=== PATIENT | male | born 1955 | race Caucasian/White ===

== ENCOUNTER 2023-04-15 07:35 | Outpatient (REF) | payer MEDICARE, OTHER, SELFPAY ==
--- NOTE | ~2023-04-15 | US_ITS ---
EXAMINATION: US VENOUS REFLUX/INSUF FICIENCY CLINICAL INFORMATION: Varicose veins, pain COMPARISON: None. TECHNIQUE: Bilateral lower extremity venous insufficiency ultrasound was performed with velocity measurements. Color flow Doppler imaging was performed. FINDINGS: RIGHT SIDE: No evidence of DVT within the common femoral, mid femoral, or popliteal vein. There is evidence of venous reflux within the mid segment of the femoral vein with reflux time 2576 ms GREATER SAPHENOUS VEIN: The right saphenofemoral junction measures 0.9cm. The reflux time is 752 ms. Proximal thigh measures 1cm. Reflux time is 2472 ms. Mid thigh measures 1.1cm. Reflux time is 2056 ms. Above-knee measures 0.6cm. Reflux time is 2476 ms. At the knee measures 0.5cm. Reflux time is 2564 ms. Below the knee measures 0.3cm. Reflux time is 0 ms. Mid calf measures 0.3cm. Reflux time is 0 ms. At the level of the ankle it measures 0.3cm. Reflux time is 0 ms. SMALL SAPHENOUS VEIN: The saphenopopliteal junction measures 0.3 cm. Reflux time is 0 ms. The midcalf small saphenous vein measures 0.3 cm. Reflux time is 548 ms.. The distal small saphenous vein measures 0.4cm. Reflux time is 1012 ms. There are several special event assistant veins identified. This includes: 51 cm from the calcaneus at the mid thigh there is a 0.4 cm special event assistant with reflux time 2700 ms. At the proximal calf there is a 0.3 cm special event assistant which does not demonstrate reflux. At the mid calf there are 2 additional special event assistant veins which measure 0.3 cm and do not demonstrate reflux. There is a 0.8 cm varicosity at the level of the knee with reflux time 2412 ms. LEFT SIDE: No evidence of DVT within the common femoral, mid femoral, or popliteal vein. There is evidence of venous reflux within the common femoral vein with reflux time 792 ms. There is also venous reflux within the mid femoral vein with reflux time 2424 ms GREATER SAPHENOUS VEIN: The left saphenofemoral junction measures 0.9cm. The reflux time is 0 ms. Proximal thigh measures 0.8cm. Reflux time is 0 ms. Mid thigh measures 0.6cm. Reflux time is 2664 ms. Above-knee measures 0.5cm. Reflux time is 2640 ms. At the knee measures 0.5cm. Reflux time is 2720 ms. Below the knee measures 0.5cm. Reflux time is 0 ms. Mid calf measures 0.3cm. Reflux time is 0 ms. At the level of the ankle it measures0.3cm. Reflux time is 0 ms. There is a medial duplicated saphenous vein which measures 0.3 cm at the saphenofemoral junction and does not demonstrate reflux. At the mid thigh measures 0.3 cm and does not demonstrate reflux. SMALL SAPHENOUS VEIN: The saphenopopliteal junction measures 0.4 cm. Reflux time is 0 ms. The upper left small saphenous vein measures 0.2 cm. Reflux time is 0 ms. The lower small saphenous vein measures 0.2cm. Reflux time is 0 ms. Several special event assistant veins are visualized. These include: At the distal calf is 0.2 cm special event assistant, no reflux At the mid calf there is a 0.3 cm special event assistant, no reflux At the distal calf there is a 0.2 cm special event assistant, no reflux There are several left lower extremity varicose vein seen. At the proximal thigh there is a 0.3 cm varicosity with reflux time 2152 ms At the knee there is a 0.6 cm varicosity with reflux time 1376 ms At the mid calf there is a 0.2 cm varicosity with reflux time 1736 ms US/US venous duplex LE BI IMPRESSION: On the right there is evidence of deep venous reflux within the midportion of the femoral vein. There is venous reflux within the great saphenous vein extending from the level of the saphenofemoral junction to the below the knee segment. There is also reflux within the small saphenous vein within the mid calf the distal calf portions. There is also a mid thigh special event assistant, 51 cm from the calcaneus, which demonstrate reflux. There is a 0.8 cm varicosity at the knee which demonstrate reflux as well. On the left there is evidence of deep venous reflux within the common femoral vein at the midportion of the femoral vein. There is venous reflux within the great saphenous vein from the mid thigh to the knee. There are 3 varicosities, as described which demonstrate venous reflux.
== END 2023-04-15 07:36 | disposition home or self-care (01) ==
LOC: HO.US 07:35
PROVIDERS: PCP Family Medicine; Visit Provider Family Medicine
DX: I83.813 Varicose veins of bilateral lower extremities with pain (principal)
CPT/HCPCS: 93970

== ENCOUNTER 2023-04-18 08:35 | Outpatient (REF) | payer MEDICARE, OTHER, SELFPAY | END 2023-04-18 08:36 | disposition home or self-care (01) | LOC: HO.HHCL 08:35 | PROVIDERS: Visit Provider Family Medicine | DX: I10 Essential (primary) hypertension (principal) | CPT/HCPCS: 36415; 80048 ==

== ENCOUNTER 2023-05-27 09:34 | Outpatient (AMB) | payer MEDICARE, OTHER, SELFPAY ==
--- NOTE | 2023-05-27 09:49 | A.OFFVIS_ITS ---
Intake Vital Signs 05/27/23 09:51 Height 5 ft 5 in Weight 200 lb BMI 33.3 Intake Visit Reasons: new pt VV Intake Note: PT here today for a referral for VV He states that he is doing ok he id have a episode where his VV did get swollen and he had gone to the ER but he said ever since hes been using the compression stockings and has seen improvement Parking Assistant Required: Yes Parking Assistant Name: alley pinedo Information Interpreted: clinical only Allergies No Known Allergies Allergy (Verified 05/27/23 09:51) HPI new pt VV HPI Details Very pleasant 67-year-old gentleman patient presents for painful varicose veins. Complaints include pain over varicosities, swelling of lower extremities, cramping, fatigue, and heaviness of the lower extremities. Had an episode of right ankle phlebitis. It has been affecting there daily activities including walking. It is noted more so in right leg. Patient denies any previous venous surgery or injections. Patient denies any history of DVT/ PE. Patient denies any history of phlebitis. Trial of compression includes - [id number] They now present for vascular evaluation regarding their varicose veins. Review of Systems Const Reports as per HPI ENT Reports no additional complaints Card Denies chest pain, Denies chest pain at rest and Denies chest pain with activity Resp Denies chest congestion and Denies cough GI Reports no additional complaints Musc Details: pain over varicosities, aching of lower extremities, swelling, cramping, heaviness and tiredness, itching Denies abnormal gait Skin/Breast Reports pruritus and Denies wounds Neuro Reports no additional complaints and Denies abnormal gait Psych Denies no additional complaints Physical Exam Vital Signs: BMI result Body Mass Index 33.3 Const General: cooperative, healthy appearing and comfortable Orientation/consciousness: oriented to person, oriented to place and oriented to time Neck Carotids: no bruits Chest Chest palpation & inspection: normal inspection of the chest and normal palpation of entire chest wall Resp Effort & Inspection: normal respiratory effort and able to speak in complete se ntences Cardio Rate: regular rate Heart sounds: S1 normal heart sound present and S2 normal heart sound present Peripheral pulses: Peripheral pulses 2+ throughout GI Inspection: Yes normal to inspection Skin Other: +2 edema, large rope-like varicosities greater than 4 mm right ankle and calf CEAP Classification C4 - skin color changes Ep - Etiology Primary As - superficial veins P - reflux General skin exam: dry skin Neuro General: oriented to person, oriented to place and oriented to time Extrem Right lower extremity: full ROM, normal capillary refill and edema Left lower extremity: full ROM, normal capillary refill and edema Psych Mental Status: mental status grossly normal Assessment & Plan Assessment & Plan (1) Varicose veins of right lower extremity with inflammation: Code(s): I83.11 - Varicose veins of right lower extremity with inflammation Plan: In short, the patient has evidence of venous insufficiency. I have discussed the pathophysiology with the patient. In addition I have provided informational material regarding venous disease to the patient. We have discussed conservative measures including compression, elevation, and exercise. I have also provided a handout regarding appropriate use of compression stockings and where to purchase good compression stockings as well. I have taken the liberty of ordering venous insufficiency testing with the patient. They will follow up with me after testing. The patient had an opportunity to ask questions regarding the treatment plan. All questions were answered. Imaging studies, laboratory studies and physical exam results were discussed and reviewed in detail. No major barriers to understanding were identified. The patient expressed understanding and agreement with the above treatment plan. The patient is aware they should contact our office by phone for worsening of the current condition or the appearance of new symptoms. Thank you for allowing me to participate in the vascular care of this patient. If you have any questions or concerns regarding the treatment for the above condition please do not hesitate to contact me. The office telephone contact is [phone]. This note is constructed using voice recognition software. While every effort has been made to ensure accuracy, oracle data warehouse developer errors may have been included. Thank you for allowing me to participate in the care of your patient. Yours sincerely, Mohinder Sepulveda MD, FACS, R.P.V.I. Orders: Orders US venous duplex LE BI 1 Week I83.11 - Varicose veins of right lower extremity with inflammation Coding Level of Care Code New Pt Level 4 (55505) Diagnoses Varicose veins of right lower extremity with inflammation I83.11
[2023-05-27 09:51] VITALS: BMI 33.3
== END 2023-05-27 10:43 | disposition home or self-care (01) ==
PROVIDERS: PCP Family Medicine; Visit Provider Surgery Vascular Surgery
DX: I83.11 Varicose veins of right lower extremity with inflammation (principal)
CPT/HCPCS: 99204

== ENCOUNTER → 2023-05-27 09:34 | Outpatient (BNVA) | payer MEDICARE, OTHER, SELFPAY | PROVIDERS: PCP Family Medicine; Visit Provider Surgery Vascular Surgery | DX: I83.11 Varicose veins of right lower extremity with inflammation (principal) | CPT/HCPCS: 99202 ==

== ENCOUNTER 2023-06-10 07:58 | Outpatient (REF) | payer MEDICARE, OTHER, SELFPAY | END 2023-06-10 07:59 | disposition home or self-care (01) | LOC: HO.US 07:58 | PROVIDERS: PCP Family Medicine; Visit Provider Surgery Vascular Surgery | DX: Z13.89 Encounter for screening for other disorder (principal) ==

== ENCOUNTER 2023-07-04 13:20 | Outpatient (AMB) | payer MEDICARE, MEDICAID, SELFPAY ==
--- NOTE | 2023-07-04 13:32 | A.OFFVIS_ITS ---
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 Pt states that he gets swelling in his right leg where the VV are located but it has not happened in a few weeks and he does not feel any pain or discomfort. He states that his left leg is perfectly fine Graphite Disk Assembler Required: Yes Graphite Disk Assembler Name: Barrera Burch Information Interpreted: non-clinical & clinical Allergies No Known Allergies Allergy (Verified 07/04/23 13:35) HPI CONTENT MANAGEMENT CONSULTANT VV HPI Details 68-year-old gentleman patient presents for painful varicose veins. Complaints include pain over varicosities, swelling of lower extremities, cramping, fatigue, and heaviness of the lower extremities. 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 It is noted more so in right leg. Biggest concern is that he has a large right calf varicosities Patient denies any previous venous surgery or injections. Patient denies any history of DVT/ PE. Patient denies any history of phlebitis. Trial of compression includes - [id number] They now present for vascular evaluation regarding their varicose veins. Review of Systems Const Reports as per HPI ENT Reports no additional complaints Card Denies chest pain, Denies chest pain at rest and Denies chest pain with activity Resp Denies chest congestion and Denies cough GI Reports no additional complaints Musc Details: pain over varicosities, aching of lower extremities, swelling, cramping, heaviness and tiredness, itching Denies abnormal gait Skin/Breast Reports pruritus and Denies wounds Neuro Reports no additional complaints and Denies abnormal gait Psych Denies no additional complaints Physical Exam Vital Signs: BMI result Body Mass Index 33.9 Const General: cooperative, healthy appearing and comfortable Orientation/consciousness: oriented to person, oriented to place and oriented to time Neck Carotids: no bruits Chest Chest palpation & inspection: normal inspection of the chest and normal palpation of entire chest wall Resp Effort & Inspection: normal respiratory effort and able to speak in complete sentences Cardio Rate: regular rate Heart sounds: S1 normal heart sound present and S2 normal heart sound present Peripheral pulses: Peripheral pulses 2+ throughout GI Inspection: Yes normal to inspection Skin Other: +2 edema, large rope-like varicosities greater than 4 mm CEAP Classification C4 - skin color changes Ep - Etiology Primary As - superficial veins P - reflux General skin exam: dry skin Neuro General: oriented to person, oriented to place and oriented to time Extrem Right lower extremity: full ROM, normal capillary refill and edema Left lower extremity: full ROM, normal capillary refill and edema Psych Mental Status: mental status grossly normal Assessment & Plan Assessment & Plan (1) Varicose veins of right lower extremity with inflammation: Code(s): I83.11 - Varicose veins of right lower extremity with inflammation Plan: In short, the patient has evidence of venous insufficiency. I have discussed the pathophysiology with the patient. In addition I have provided informational material regarding venous disease to the patient. We have discussed conservative measures including compression, elevation, and exercise. I have also provided a handout regarding appropriate use of compression stockings and where to purchase good compression stockings as well. I have taken the liberty of ordering venous insufficiency testing with the patient. They will follow up with me after testing. The patient had an opportunity to ask questions regarding the treatment plan. All questions were answered. Imaging studies, laboratory studies and physical exam results were discussed and reviewed in detail. No major barriers to understanding were identified. The patient expressed understanding and agreement with the above treatment plan. The patient is aware they should contact our office by phone for worsening of the current condition or the appearance of new symptoms. Thank you for allowing me to participate in the vascular care of this patient. If you have any questions or concerns regarding the treatment for the above condition please do not hesitate to contact me. The office telephone contact is [phone]. This note is constructed using voice recognition software. While every effort has been made to ensure accuracy, restaurant managing partner errors may have been included. Thank you for allowing me to participate in the care of your patient. Yours sincerely, Mohinder Sepulveda MD, FACS, R.P.V.I. Orders: Orders US venous duplex LE BI 1 Week I83.11 - Varicose veins of right lower extremity with inflammation Coding Level of Care Code New Pt Level 4 (72305) Diagnoses Varicose veins of right lower extremity with inflammation I83.11
[2023-07-04 13:34] VITALS: BMI 33.9
== END 2023-07-04 13:59 | disposition home or self-care (01) ==
PROVIDERS: PCP Emergency Medicine; Visit Provider Surgery Vascular Surgery
DX: I83.11 Varicose veins of right lower extremity with inflammation (principal)
CPT/HCPCS: 99203; 99213

== ENCOUNTER → 2023-07-04 13:20 | Outpatient (BNVA) | payer MEDICARE, MEDICAID, SELFPAY | PROVIDERS: PCP Emergency Medicine; Visit Provider Surgery Vascular Surgery | DX: I83.11 Varicose veins of right lower extremity with inflammation (principal) | CPT/HCPCS: 99202 ==

== ENCOUNTER 2023-08-06 10:42 | Outpatient (AMB) | payer MEDICARE, MEDICAID, SELFPAY ==
--- NOTE | 2023-08-06 10:43 | A.OFFVIS_ITS ---
Intake Vital Signs 08/06/23 10:44 Height 5 ft 5 in Weight 204 lb BMI 33.9 Intake Visit Reasons: Follow up [facility] 04/2023 Intake Note: follow up [facility] 04/15/2023, Pt states only the right LE is bothersome, he has a large venous cluster Allergies No Known Allergies Allergy (Verified 08/06/23 10:48) HPI Follow up [facility] 04/2023 HPI Details Very pleasant 68-year-old gentleman presents for follow-up regarding venous insufficiency. He actually had testing done back in April of 2023. Since that time he has been managing it conservatively. He does note a fair amount of swelling and pain right more so than left. Large right calf varicosities which have been a source of pain for him as well. Now presents for follow-up with venous insufficiency testing. [facility] Surgical History (Updated 08/06/23 @ 10:51 by LOUISA Juna) H/O shoulder surgery Previous back surgery Social History (Updated 08/06/23 @ 10:50 by LOUISA Juan) Patient Tobacco Use Status: Never used Tobacco Review of Systems Const Reports as per HPI ENT Reports no additional complaints Card Denies chest pain, Denies chest pain at rest and Denies chest pain with activity Resp Denies chest congestion and Denies cough GI Reports no additional complaints Musc Details: pain over varicosities, aching of lower extremities, swelling, cramping, heaviness and tiredness, itching Denies abnormal gait Skin/Breast Reports pruritus and Denies wounds Neuro Reports no additional complaints and Denies abnormal gait Psych Denies no additional complaints Physical Exam Vital Signs: BMI result Body Mass Index 33.9 Const General: cooperative, healthy appearing and comfortable Orientation/consciousness: oriented to person, oriented to place and oriented to time Neck Carotids: no bruits Chest Chest palpation & inspection: normal inspection of the chest and normal palpation of entire chest wall Resp Effort & Inspection: normal respiratory effort and able to speak in complete sentences Cardio Rate: regular rate Heart sounds: S1 normal heart sound present and S2 normal heart sound present Peripheral pulses: Peripheral pulses 2+ throughout GI Inspection: Yes normal to inspection Skin Other: +2 edema, large rope-like varicosities greater than 4 mm right calf CEAP Classification C4 - skin color changes Ep - Etiology Primary As - superficial veins P - reflux General skin exam: dry skin Neuro General: oriented to person, oriented to place and oriented to time Extrem Right lower extremity: full ROM, normal capillary refill and edema Left lower extremity: full ROM, normal capillary refill and edema Psych Mental Status: mental status grossly normal Results Reviewed Results Reviewed: Brief summary of venous insufficiency testing is as follows: right great saphenous vein: Positive right small saphenous vein: Positive right accessory vein: none present left great saphenous vein: Positive left small saphenous vein: negative left accessory vein: none present Please note there is no evidence of any venous aneurysms or significant tortuosity Assessment & Plan Assessment & Plan (1) Varicose veins of right lower extremity with inflammation: Code(s): I83.11 - Varicose veins of right lower extremity with inflammation Plan: This patient has varicose veins with inflammation. They continue to be a source of discomfort for the patient. The patient has tried conservative treatment with compression, leg elevation and exercise program for over 3 months time. They have been compliant with all treatment. This has provided minimal relief for the patient. I do not anticipate this course of treatment will alter the underlying etiology. The patient has been scheduled for lower extremity venous treatment inclusive of --- right great saphenous vein radiofrequency ablation. Risks, benefits, and complications of this procedure has been discussed in detail with the patient including but not limited to bleeding, infection, and the development of a DVT. The patient has demonstrated a clear understanding and has consented. We will schedule the patient as soon as possible. Thank you for allowing us to participate in this patient's care. If there are any questions or concerns please do not hesitate to contact us. Coding Level of Care Code Est Pt Level 4 (77769) Diagnoses Varicose veins of right lower extremity with inflammation I83.11
[2023-08-06 10:44] VITALS: BMI 33.9
== END 2023-08-06 11:14 | disposition home or self-care (01) ==
PROVIDERS: PCP Family Medicine; Visit Provider Surgery Vascular Surgery
DX: I83.11 Varicose veins of right lower extremity with inflammation (principal)
CPT/HCPCS: 99214

== ENCOUNTER → 2023-08-06 10:42 | Outpatient (BNVA) | payer MEDICARE, OTHER, SELFPAY | PROVIDERS: PCP Family Medicine; Visit Provider Surgery Vascular Surgery | DX: I83.11 Varicose veins of right lower extremity with inflammation (principal) | CPT/HCPCS: 99212 ==

== ENCOUNTER 2024-02-12 10:42 | Outpatient (REF) | payer MEDICARE, MEDICAID, SELFPAY ==
--- NOTE | ~2024-02-12 | XR_ITS ---
EXAMINATION: XR FOOT, LEFT CLINICAL INFORMATION: Pain after trauma COMPARISON: None available. TECHNIQUE: AP, lateral, and oblique views of the left foot. FINDINGS: Oblique nondisplaced fracture through the proximal phalanx of the fourth toe. No other fractures are seen. Vascular calcifications are present. Postsurgical changes are seen in the distal tibia. XR/XR foot LT min 3V IMPRESSION: Fracture proximal phalanx fourth toe.
== END 2024-02-12 10:43 | disposition home or self-care (01) ==
LOC: HO.HHCX 10:42
PROVIDERS: Visit Provider Emergency Medicine
DX: S99.922A Unspecified injury of left foot, initial encounter (principal); M79.672 Pain in left foot
CPT/HCPCS: 73630

== ENCOUNTER 2024-02-21 10:08 | Outpatient (AMB) | payer MEDICARE, MEDICAID, SELFPAY ==
--- NOTE | 2024-02-21 10:15 | MHC.OFFVIS ---
Vital Signs 02/21/24 10:24 Height 5 ft 5 in Weight 204 lb BMI 33.9 Intake Visit Reasons: FC- Left 4th toe fracture Intake Note: David a 68 year old male who presents today with his son for a new patient evaluation of left 4th toe fracture. Patient reports that he hit his toe on a couch about 4 weeks ago while in [place]. He was seen by walk in at his PCP office, xrays were taken and referred to orthopedics. His pain has improved however he has discomfort with wearing shoes. He continues to have swelling in his toe. Quality Control Tech Services: Quality Control Tech Offered & Declined Allergies No Known Allergies Allergy (Verified 02/21/24 10:19) Medication List - Last Reconciled 02/21/24 by Yang Fregoso PA-C hydrocortisone 2.5% appl topical losartan 12.5 mg PO DAILY losartan 12.5 mg PO DAILY meloxicam 7.5 mg PO BID meloxicam 7.5 mg PO BID omeprazole 20 mg PO DAILY omeprazole 20 mg PO DAILY HPI HPI FC- Left 4th toe fracture: Details: 68-year-old male who presents to the office today for an evaluation of left 4th metatarsal injury after hitting his toe on a couch while in [place], about 4 weeks ago. He was seen walk in at his PCP office where x-rays were performed and he was referred to our office. He currently states he has improvement in his pain however he still has discomfort in his foot with wearing shoes as well as swelling in his toes. [facility] Surgical History (Updated 02/21/24 @ 10:20 by LOUISA Montano) History of ankle surgery H/O shoulder surgery Previous back surgery Social History (Updated 02/21/24 @ 10:20 by LOUISA Montano) Patient Tobacco Use Status: Never used Tobacco Current occupational status: disabled Review of Systems Const All systems reviewed & are unremarkable except as noted in HPI and below Physical Exam Vital Signs: BMI result Body Mass Index 33.9 Const General: cooperative, healthy appearing, comfortable, no acute distress, well developed and alert Orientation/consciousness: patient oriented x3 HEENT Head: Yes normal to inspection, Yes normocephalic and Yes atraumatic Eyes General: appearance normal, both eyes and all related structures Resp Effort & Inspection: normal respiratory effort and able to speak in complete sentences Cardio Rate: regular rate Peripheral pulses: Peripheral pulses 2+ throughout GI Palpation (GI): Soft to palpation Skin Lesions: no lesions Rashes: no rashes Neuro General: patient oriented x3 Extrem Other: Left foot: Normal to inspection. There is some bruising and swelling over the 4th metatarsal with mild tenderness to palpation. NVI. Office Procedures Fracture Care Fracture Billing Code: Fracture Billing Code Results Reviewed Results Reviewed: Xrays were obtained in the office today and personally reviewed by me of the left foot show minimally displaced fracture through the proximal phalanx of the 4th toe Assessment & Plan Assessment & Plan (1) Toe fracture, left: Code(s): S92.912A - Unspecified fracture of left toe(s), initial encounter for closed fracture Category: Medical Plan I discussed the extent of his injury and healing process which may take 8-12 weeks for nice solid reunion. I expect fluctuations in his pain and swelling over activities till this time. I advised he wears comfortable footwear with ambulation and avoid uneven surfaces. He should increase activities as tolerated and over the next 6-8 weeks if he has and questions or concerns, he will contact the office, otherwise as needed. Patient Instructions: Scribed for Yang Fregoso PA-C, by Rudolph Celestin medical office technology instructor, on 02/21/2024 at 10:30 AM EST.? I, Yang Fregoso PA-C, have personally reviewed and agree with the information entered by the scribe. Coding Level of Care Code New Pt Level 3 (64622) Diagnoses Toe fracture, left S92.912A CPT Codes Fracture Care - Fracture Billing Code: Fracture Billing Code ([id number])
[2024-02-21 10:24] VITALS: BMI 33.9
== END 2024-02-21 11:20 | disposition home or self-care (01) ==
PROVIDERS: PCP Family Medicine; Visit Provider Physician Assistant
DX: S92.912A Unspecified fracture of left toe(s), initial encounter for closed fracture (principal)
CPT/HCPCS: 99203

== ENCOUNTER 2024-02-21 10:08 | Outpatient (REF) | payer MEDICARE, MEDICAID, SELFPAY ==
--- NOTE | ~2024-02-21 | XR_ITS ---
EXAMINATION: XR FOOT, LEFT CLINICAL INFORMATION: Fracture. COMPARISON: Left foot radiographs dated 02/12/2024. TECHNIQUE: AP, lateral, and oblique views of the left foot. FINDINGS: Redemonstration of an oblique, mildly displaced fracture through the fourth proximal phalanx in similar anatomic alignment. Minimal new bone/callus formation without significant osseous bridging. Redemonstration of an oblique, nondisplaced fracture at the medial base of the fifth proximal phalanx with improved anatomic alignment and interval osseous bridging when compared to the prior examination. No new fracture or dislocation. No concerning lytic or blastic osseous lesion. Medial malleolar orthopedic screw without evidence of hardware complication. Atherosclerotic calcifications. XR/XR foot LT min 3V IMPRESSION: 1. Fourth proximal phalangeal fracture in similar anatomic alignment with minimal new bone/callus formation. 2. Fifth proximal phalangeal fracture with improved anatomic alignment and interval osseous bridging when compared to the prior examination. 3. Medial malleolar orthopedic screw without evidence of hardware complication. 4. No new fracture or dislocation. Electronically signed by: Romel Gruber MD 04/30/2024 12:07 PM EDT
== END 2024-02-21 10:09 | disposition home or self-care (01) ==
LOC: HO.HOSX 10:08
PROVIDERS: PCP Family Medicine; Visit Provider Physician Assistant
DX: S92.512A Displaced fracture of proximal phalanx of left lesser toe(s), initial encounter for closed fracture (principal)
CPT/HCPCS: 73630; 99202

== ENCOUNTER 2024-04-30 09:46 | Outpatient (REF) | payer MEDICARE, MEDICAID, SELFPAY ==
--- NOTE | ~2024-04-30 | XR_ITS ---
EXAMINATION: XR CERVICAL SPINE CLINICAL INFORMATION: Dizziness with neck movement. Cervical radiculopathy. COMPARISON: Cervical spine MRI dated 05/24/2008. TECHNIQUE: AP, lateral, open-mouth, and bilateral oblique views of the cervical spine. FINDINGS: Normal vertebral body alignment. The cervical lordosis is maintained. No acute fracture or subluxation. No loss of vertebral body height. Loss of intervertebral disc height with endplate osteophytes at C5 through T1. Associated bilateral facet arthropathy. Findings have progressed when compared to the prior examination. Normal atlantoaxial alignment. Unremarkable prevertebral soft tissues. XR/XR cervical spine 4V IMPRESSION: Moderate degenerative disc disease at C5 through T1 with bilateral facet arthropathy, progressed when compared to the prior examination. Electronically signed by: Romel Grbuer MD 04/30/2024 11:46 AM EDT
== END 2024-04-30 09:47 | disposition home or self-care (01) ==
LOC: HO.HHCX 09:46
PROVIDERS: Visit Provider Family Medicine
DX: M54.12 Radiculopathy, cervical region (principal); R42 Dizziness and giddiness
CPT/HCPCS: 72050

== ENCOUNTER 2024-05-01 08:48 | Outpatient (REF) | payer MEDICARE, MEDICAID, SELFPAY ==
[2024-05-01 12:03] LABS: MANUAL DIFF FLAG NO
[2024-05-01 12:10] LABS: Basophils Percent Auto 0.5 % (0-2); Eosinophils Absolute Auto 0.1 X10*3/uL (0.0-0.4); Eosinophils Percent Auto 1.2 % (0-4); Hematocrit 42.8 % (42.0-52.0); Hemoglobin 14.6 g/dl (14.0-18.0); Imm Gran Abs Auto 0.03 X10*3/uL (0.00-0.03); Imm Gran Pct Auto 0.5 % (0.0-0.4); Lymphocytes Absolute Auto 1.4 X10*3/uL (1.2-4.9); Lymphocytes Percent Auto 20.7 % (20-40); Mean Corpuscular HGB Conc 34.1 g/dl (31.0-36.0); Mean Corpuscular Hemoglobin 31.7 pg (27.0-33.0); Mean Platelet Volume 10.9 fL (9.4-12.4); Monocytes Absolute Auto 0.8 X10*3/uL (0.1-1.2); Monocytes Percent Auto 12.4 % (2-11); Neutrophils Absolute Auto 4.2 x10*3/uL (2.0-8.3); Neutrophils Percent Auto 64.7 % (45-73); Platelet Count 250 X10*3/uL (160-400); Red Cell Distribution Width 12.2 % (11.0-16.0); White Blood Count 6.5 X10*3/uL (4.8-10.8)
[2024-05-01 13:45] LABS: Alanine Aminotransferase 15 U/L (0-40); Albumin Level 4.2 g/dL (3.5-5.0); Alkaline Phosphatase 65 U/L (39-117); Anion Gap 12 (12-20); Aspartate Amino Transferase 20 U/L (5-37); Bilirubin Total 2.1 mg/dL (0.0-1.0); Blood Urea Nitrogen 21 mg/dL (9-16); Calcium 8.8 mg/dL (8.4-10.2); Carbon Dioxide 24 mmol/L (22-29); Chloride 106 mmol/L (96-108); Cholesterol 189 mg/dL (<200); Estimated Glomerular Filt Rate > 60; Glucose Random 94 mg/dL (60-115); HDL Cholesterol 45 mg/dL (>40); LDL Cholesterol Calculated 114 mg/dL (<100); Potassium 3.8 mmol/L (3.3-5.1); Sodium 138 mmol/L (135-145); TSH reflex Free T4 2.62 uIU/mL (0.32-4.0); Total Protein 6.8 g/dL (6.5-8.0); Triglycerides 150 mg/dL (<150)
[2024-05-01 14:21] LABS: Reflex LDLD? No
== END 2024-05-01 08:49 | disposition home or self-care (01) ==
LOC: HO.HHCL 08:48
PROVIDERS: Visit Provider Family Medicine
DX: R42 Dizziness and giddiness (principal); I10 Essential (primary) hypertension
CPT/HCPCS: 36415; 80053; 80061; 84443; 85025

== ENCOUNTER 2024-05-16 09:10 | Outpatient (REF) | payer MEDICARE, SELFPAY ==
--- NOTE | ~2024-05-16 | MR_ITS ---
EXAMINATION: MR SHOULDER WITHOUT CONTRAST, RIGHT CLINICAL INFORMATION: Right shoulder pain. COMPARISON: X-ray of the right shoulder February 2019. MRI of the right shoulder March 2019. TECHNIQUE: MRI of the shoulder without contrast was performed on a high-field scanner. FINDINGS: ROTATOR CUFF: Supraspinatus: There is a small full-thickness insertional tear of the anterior supraspinatus tendon. The tear measures 9 mm transverse and 8 mm AP. The previously noted partial tear on the 2019 has progressed to full-thickness tear is noted. Additional heterogeneity throughout the tendon compatible with tendinosis but no additional tendon tear or defect. Muscle normal. Infraspinatus: Normal. Teres minor: Normal. Subscapularis: Small linear focus of increased signal near the insertion of the tendon compatible with a tiny intrasubstance partial tear. No measurable defect or tendon retraction. Muscle normal. BICEPS: Normal. CORACOACROMIAL ARCH: The undersurface of the acromion is curved with no subacromial spur. Moderate osteoarthritis of the acromioclavicular joint with subchondral cysts and marginal osteophytes. This mildly indents on the supraspinatus below. BURSA: Increased fluid in the subacromial subdeltoid bursa secondary to the rotator cuff tear. LABRUM/CAPSULE: Normal. GLENOHUMERAL JOINT/MARROW: Articular cartilage normal. Small cysts in the greater tuberosity anteriorly and posteriorly. MR/MR shoulder RT wo con IMPRESSION: 1. Small full-thickness insertional tear of the anterior supraspinatus tendon. The previously noted partial tear on the 2019 exam has progressed as noted. 2. Moderate osteoarthritis of the acromioclavicular joint. Electronically signed by: Jd Zhao MD 05/16/2024 11:35 AM EDT
== END 2024-05-16 09:11 | disposition home or self-care (01) ==
LOC: HO.MRI 09:10
PROVIDERS: PCP Family Medicine; Visit Provider Family Medicine
DX: M25.511 Pain in right shoulder (principal); G89.29 Other chronic pain; R42 Dizziness and giddiness; M54.12 Radiculopathy, cervical region
CPT/HCPCS: 72141; 73221

== ENCOUNTER → 2024-05-16 09:56 | Outpatient (BNV) | payer MEDICARE, SELFPAY | PROVIDERS: PCP Family Medicine; Visit Provider Radiology Diagnostic Radiology | DX: M48.02 Spinal stenosis, cervical region (principal) | CPT/HCPCS: 72141 ==

== ENCOUNTER 2024-06-05 08:36 | Outpatient (REF) | payer MEDICARE, SELFPAY ==
--- NOTE | ~2024-06-05 | XR_ITS ---
EXAMINATION: XR RIGHT SHOULDER CLINICAL INFORMATION: Pain in right shoulder M25.511. COMPARISON: XR Right shoulder 02/08/2019 TECHNIQUE: 3 views of the right shoulder including axillary view FINDINGS: Acromioclavicular joint mild to moderate osteoarthritis unchanged. Glenohumeral joint normal. Surrounding bone and soft tissues unremarkable. XR/XR shoulder RT min 2V IMPRESSION: Mild to moderate osteoarthritis of the acromioclavicular joint unchanged. Electronically signed by: Jd Zhao MD 07/05/2024 09:25 AM [facility]
== END 2024-06-05 08:37 | disposition home or self-care (01) ==
LOC: HO.HOSX 08:36
PROVIDERS: Visit Provider Physician Assistant
DX: M25.511 Pain in right shoulder (principal); G89.29 Other chronic pain; M19.011 Primary osteoarthritis, right shoulder; M75.101 Unspecified rotator cuff tear or rupture of right shoulder, not specified as traumatic
CPT/HCPCS: 73030; 99212

== ENCOUNTER 2024-06-05 09:36 | Outpatient (AMB) | payer MEDICARE, SELFPAY ==
--- NOTE | 2024-06-05 09:44 | A.OFFVIS_ITS ---
Vital Signs 06/05/24 09:54 Height 5 ft 5 in Weight 204 lb BMI 33.9 Intake Visit Reasons: New prob-Chronic right shoulder pain Intake Note: David a 68 year old male who presents today for an evaluation of right shoulder. Patient reports his pain has been present for many years but has been getting worse since January. His pain radiates up his neck and down his arm. Inte rmittent numbness and tingling in his hand. Limited ROM. No relief with Tylenol. States he was seen here at [facility] [place] for his right shoulder. Recent MRI done here at [facility] [place]. Phlebotomy Tech Required: Yes Phlebotomy Tech Services: Phlebotomy Tech Present Phlebotomy Tech Name: Atif [id number] Allergies No Known Allergies Allergy (Verified 06/05/24 09:50) Medication List - Last Reconciled 06/05/24 by Yang Fregoso PA-C acetaminophen 325 mg PO Q8H PRN hydrocortisone 2.5% appl topical losartan 12.5 mg PO DAILY losartan 12.5 mg PO DAILY meloxicam 7.5 mg PO BID meloxicam 7.5 mg PO BID omeprazole 20 mg PO DAILY omeprazole 20 mg PO DAILY HPI HPI New prob-Chronic right shoulder pain: Details: 69-year-old male presents to the office today for right shoulder pain. He has light d pain for many years but it has progressed since January. He cannot recall any injury to the right shoulder. He states he has limitations with daily activities such as getting his arm up to comb his hair. He has discomfort with sleeping. He has had therapy on the right shoulder many years ago and noticed limited benefit. [facility] Surgical History History of ankle surgery H/O shoulder surgery Previous back surgery Social History (Updated 06/05/24 @ 09:51 by LOUISA Montano) Patient Tobacco Use Status: Never used Tobacco Current occupational status: disabled Current occupation: right hand dominant Review of Systems Const All systems reviewed & are unremarkable except as noted in HPI and below Physical Exam Vital Signs: BMI result Body Mass Index 33.9 Const General: cooperative and no acute distress Orientation/consciousness: patient oriented x3 Resp Effort & Inspection: normal respiratory effort and able to speak in complete sentences Cardio Peripheral pulses: Peripheral pulses 2+ throughout Neuro General: patient oriented x3 Extrem Other: Right shoulder normal to inspection. He has full ROM in all planes with discomfort on the right. He is able to activate rtc strength on the right with pain. NVI. Results Reviewed Results Reviewed: X-rays of the right shoulder obtained in the office today significant for glenohumeral joint arthritis and AC MRI right shoulder 05/16/2024 IMPRESSION: 1. Small full-thickness insertional tear of the anterior supraspinatus tendon. The previously noted partial tear on the 2019 exam has progressed as noted. 2. Moderate osteoarthritis of the acromioclavicular joint. Electronically signed by: Jd Zhao MD 05/16/2024 11:35 AM EDT RP Assessment & Plan Assessment & Plan (1) Arthritis of right shoulder: Code(s): M19.011 - Primary osteoarthritis, right shoulder Category: Medical (2) Right rotator cuff tear: Code(s): M75.101 - Unspecified rotator cuff tear or rupture of right shoulder, not specified as traumatic Category: Medical Qualifiers: Rotator cuff tear extent: unspecified tear extent Rotator cuff tear trauma status: unspecified whether traumatic Qualified Code(s): M75.101 - Unspecified rotator cuff tear or rupture of right shoulder, not specified as traumatic Plan We discussed options today which include corticosteroid injection and physical therapy. The patient and his daughter discussed the options in the office today and because he has had injections and therapy in the past would like to defer on that at this time and discuss surgical intervention. He states he had surgery on his left shoulder for similar reason and he did well. In that case he will return to see Dr. Rockwell to discuss right shoulder possible surgical intervention. He is content with this plan. Orders: Orders XR shoulder RT min 2V Today M25.511 - Pain in right shoulder Medications: New celecoxib (Celebrex) 200 mg PO BID 60 caps 3RF 30 days Coding Level of Care Code Est Pt Level 4 (18156) Complex EM visit Add On G2211 Diagnoses Arthritis of right shoulder M19.011 Tear of right rotator cuff, unspecified tear extent, unspecified whether traumatic M75.101 Rotator cuff tear extent: unspecified tear extent Rotator cuff tear trauma status: unspecified whether traumatic
[2024-06-05 09:54] VITALS: BMI 33.9
== END 2024-06-05 10:13 | disposition home or self-care (01) ==
PROVIDERS: PCP Family Medicine; Visit Provider Physician Assistant
DX: M19.011 Primary osteoarthritis, right shoulder (principal); M75.101 Unspecified rotator cuff tear or rupture of right shoulder, not specified as traumatic
CPT/HCPCS: 99214; G2211

== ENCOUNTER 2024-06-29 12:43 | Outpatient (AMB) | payer MEDICARE, SELFPAY ==
--- NOTE | 2024-06-29 13:06 | MHC.OFFVIS ---
Intake Visit Reasons: OV-eval RT shoulder rtc tear/oa-discuss surgery Intake Note: David is a 69 year old right hand dominant male who presents today for a follow up visit of his right shoulder. Patient was last seen with Yang who discussed treatment options with the patient, patient wishes to discuss surgical intervetion Allergies No Known Allergies Allergy (Verified 06/05/24 09:50) HPI HPI OV-eval RT shoulder rtc tear/oa-discuss surgery: Details: David is a 69 year old right hand dominant male who presents today for a follow up visit of his right shoulder. Patient was last seen with Yang who discussed treatment options with the patient, patient wishes to discuss surgical intervention. He has done physical therapy and had injections and still has pain. He has to modify his activities daily. He feels he has a hard time lifting anything past shoulder level. He has difficulty sleeping at night. Pain localizes the subdeltoid region. He is otherwise healthy with some mild hypertension according to him. [facility] Surgical History History of ankle surgery H/O shoulder surgery Previous back surgery Social History (Updated 06/05/24 @ 09:51 by LOUISA Montano) Patient Tobacco Use Status: Never used Tobacco Current occupational status: disabled Current occupation: right hand dominant Physical Exam Const General: cooperative, healthy appearing, no acute distress and well groomed Orientation/consciousness: oriented to person and oriented to place HEENT Head: Yes normal to inspection, Yes normocephalic and Yes atraumatic Eyes General: appearance normal, both eyes and all related structures Alignment and Position: alignment normal Conjunctivae: conjunctivae normal EOM: EOMs intact bilaterally Neck Neck: Yes normal visual inspection and Yes trachea midline Resp Other: No rerpiratory distress Effort & Inspection: normal respiratory effort and able to speak in complete sentences Cardio Other: Palpable radial pulse with no appreciable rythmic abnormalities GI Other: No abdominal distension Back/Spine/Pelvis Cervical Spine: normal cervical lordosis and cervical ROM normal Skin General skin exam: no rashes or lesions noted Neuro General: oriented to person, oriented to place and gait normal Extrem Other: 30/90/130/L5 4+/5 empty can Negative lift-off Mildly positive White and Neer. Results Reviewed Results Reviewed: I personally reviewed the MR images. IMPRESSION: There is a full-thickness insertional tear of the anterior supraspinatus tendon. The previously noted partial tear on the 2019 exam has progressed as noted. 2. Moderate osteoarthritis of the acromioclavicular joint. Assessment & Plan Assessment & Plan (1) Right rotator cuff tear: Code(s): M75.101 - Unspecified rotator cuff tear or rupture of right shoulder, not specified as traumatic Category: Medical Qualifiers: Rotator cuff tear extent: unspecified tear extent Rotator cuff tear trauma status: unspecified whether traumatic Qualified Code(s): M75.101 - Unspecified rotator cuff tear or rupture of right shoulder, not specified as traumatic Plan: This is a 69-year-old with a full-thickness rotator cuff tear on the right. He has tried conservative therapy but not improve. He is healthy and active and I recommend operative fixation. I discussed with him the risks, benefits and alternatives to surgery including, but not limited to, the risk of infection, pain, stiffness, need for the surgery. I outlined the timeline of recovery and the details of surgical fixation. He expressed understanding and would like to proceed forward. Coding Level of Care Code Est Pt Level 4 (31979) Diagnoses Tear of right rotator cuff, unspecified tear extent, unspecified whether traumatic M75.101 Rotator cuff tear extent: unspecified tear extent Rotator cuff tear trauma status: unspecified whether traumatic
== END 2024-06-29 15:38 | disposition home or self-care (01) ==
PROVIDERS: PCP Family Medicine; Visit Provider Orthopaedic Surgery
DX: M75.101 Unspecified rotator cuff tear or rupture of right shoulder, not specified as traumatic (principal)
CPT/HCPCS: 99214

== ENCOUNTER → 2024-06-29 12:43 | Outpatient (BNVA) | payer MEDICARE, SELFPAY | PROVIDERS: PCP Family Medicine; Visit Provider Orthopaedic Surgery | DX: M75.101 Unspecified rotator cuff tear or rupture of right shoulder, not specified as traumatic (principal) | CPT/HCPCS: 99212 ==

== ENCOUNTER 2024-07-22 09:19 | Day surgery (SDC) | payer MEDICARE, SELFPAY ==
--- NOTE | 2024-07-06 09:22 | HO.ANESPROP2 ---
Documented by User: Pricila Jordan NP 07/21/24 11:57 HPI - Anesthesia Eval Consult details Narrative: 69yo M for Right Arthroscopic Rotator Cuff Repair PMFSH Active Problems Active Problems: All Active Problems Right rotator cuff tear (Acute) Arthritis of right shoulder (Acute) Toe fracture, left (Acute) Varicose veins of right lower extremity with inflammation (Acute) Varicose veins of right lower extremity with inflammation (Acute) Past Medical History Medical History (Updated 07/06/24 @ 09:27 by Pricila Jordan NP) Varicose veins of right lower extremity with inflammation HTN (hypertension) Surgical History Surgical History History of ankle surgery H/O shoulder surgery Previous back surgery Social History Social History (Updated 06/05/24 @ 09:51 by LOUISA Montano) Patient Tobacco Use Status: Never used Tobacco Use of substances other than those prescribed or required for medical reasons: No Are you DNR?: No Advance Directives: No Advance Directives Information Provided: Yes Current occupational status: disabled Current occupation: right hand dominant Meds Allergies Allergy/AdvReac Type Severity Reaction Status Date / Time No Known Allergies Allergy Verified 07/22/24 09:59 Home Medications ?Medication ?Instructions ?Recorded ?Confirmed ?Last Taken ?Type hydrocortisone 2.5 % topical cream appl topical 05/27/23 06/05/24 Unknown History losartan 25 mg tablet 12.5 mg PO DAILY 05/27/23 07/22/24 Unknown History omeprazole 20 mg capsule,delayed 20 mg PO DAILY 05/27/23 07/22/24 Unknown History release acetaminophen 325 mg tablet 325 mg PO Q8H PRN moderate pain 06/05/24 07/22/24 Unknown History Exam Pertinent Lab Results Pertinent Lab Results: Laboratory Tests 05/01/24 08:50 WBC 6.5 Hgb 14.6 Hct 42.8 Plt Count 250 Sodium 138 Potassium 3.8 Chloride 106 Carbon Dioxide 24 BUN 21 H Creatinine 1.01 Assessment and Plan Assessment Anesthesia Assessment: Chart Reviewed Documented by User: Kaila Medina MD 07/22/24 11:51 [facility] Past Medical History Medical History (Updated 07/06/24 @ 09:27 by Pricila Jordan NP) Varicose veins of right lower extremity with inflammation HTN (hypertension) Family History Family history of problems with anesthesia: No Surgical History Surgical History History of ankle surgery H/O shoulder surgery Previous back surgery History of Problems with Anesthesia: No Social History Social History (Updated 06/05/24 @ 09:51 by LOUISA Montano) Patient Tobacco Use Status: Never used Tobacco Use of substances other than those prescribed or required for medical reasons: No Are you DNR?: No Advance Directives: No Advance Directives Information Provided: Yes Current occupational status: disabled Current occupation: right hand dominant Meds Allergies Allergy/AdvReac Type Severity Reaction Status Date / Time No Known Allergies Allergy Verified 07/22/24 09:59 Home Medications ?Medication ?Instructions ?Recorded ?Confirmed ?Last Taken ?Type hydrocortisone 2.5 % topical cream appl topical 05/27/23 06/05/24 Unknown History losartan 25 mg tablet 12.5 mg PO DAILY 05/27/23 07/22/24 Unknown History omeprazole 20 mg capsule,delayed 20 mg PO DAILY 05/27/23 07/22/24 Unknown History release acetaminophen 325 mg tablet 325 mg PO Q8H PRN moderate pain 06/05/24 07/22/24 Unknown History Exam Airway Mallampati Class: II TM Dist: >3cm Neck ROM: Full Heart: rrr Lungs: cta Assessment and Plan Assessment Anesthesia Assessment: Anesthesia Plan Discussed Final Anesthetic Review Family History of Problems with Anesthesia: No History of Problems with Anesthesia: No NPO: Yes ASA Class: II Final Preanesthetic Review: No Changes in Pt Med Stat, Meds/Allgs Chart Reviewed and Consent Obtained/Reviewed Patient Risk: Low Procedure Risk: Low Anesthetic Plan Anesthetic Plan: GA Disposition: Standard PACU
[2024-07-22] VITALS (8 sets, daily range): BP systolic 130–161; BP diastolic 64–75; PULSE 58–66; RESP 16; TEMP 36.1–36.9; O2SAT 93–97; BMI 33.3
[2024-07-22] MEDS: Lactated Ringers 1,000 ML 100 ML IVCONT (10:23)
--- NOTE | 2024-07-22 11:17 | MHC.SHP ---
Pre-Procedural Eval Section A - 24 Hr Update-Section A only Date of Service: 07/22/24 The patient is an INPATIENT: No Changes since office visit: No Cold of Flu in the past 2 weeks, No New Medical Problems, No Changes in Medication and No Patient answered all questions The patient has been examined within 24 hours of the surgical procedure. The History & Physical has been completed within 30 days and I have reviewed it.: Yes Section B - Complete if H&P > 30 days Chief Complaint: Complete rotator cuff tear or rupture of right Allergies: Allergies Allergy/AdvReac Type Severity Reaction Status Date / Time No Known Allergies Allergy Verified 07/22/24 09:59 Plan I have reviewed the history and physical and performed a pertinent physical examination on my patient. No changes have occurred unless specified. Time Spent With Patient Time: Total time managing care of this patient today ____ minutes.
--- NOTE | 2024-07-22 13:57 | PM.OP ---
Brief Operative Note Date of Service: 07/22/24 Pre-op diagnosis: Right RTC tear Post-op diagnosis: same Procedure: Right RTC repair with SAD Implants: Gann and Nephew 2x2 Surgeon: Omari Rockwell MD Anesthesia: GETA and regional Was an Wildlife Biology Internship used for this Procedure?: Yes Wildlife Biology Internship: Jessica Corral Estimated blood loss (mL): 20 IV fluids (mL): 1,000 Pathology: none sent Condition: stable Disposition: PACU
[2024-07-22] MEDS: fentaNYL citrate/PF 100 MCG/2 ML VIAL 50 MCG IVPUSH (14:20)
[2024-07-22] MEDS: oxyCODONE HCl Immed Release 5 MG TABLET PO (14:20)
[2024-07-22] MEDS: Ondansetron ODT 4 MG TAB.RAPDIS TRANSLINGU (15:39)
--- NOTE | 2024-07-23 10:41 | P.OP_ITS ---
Operative Note Operative Note Date of Service: 07/22/24 Narrative: Date of Service: 07/22/24 Pre-op diagnosis: Right RTC tear Post-op diagnosis: same Procedure: Right RTC repair with SAD Implants: Gann and Nephew 2x2, double row with 4.75 double loaded helacoil medially and 2 5.5 knotless helacoil lateral row. Surgeon: Omari Rockwell MD Anesthesia: GETA and regional Was an Web Content & Social Media Manager used for this Procedure?: Yes Web Content & Social Media Manager: Jessica Corral Estimated blood loss (mL): 20 IV fluids (mL): 1,000 Pathology: none sent Condition: stable Disposition: PACU Procedure in detail: Patient was brought to the operating room and placed the the beach chair position. All bony prominences were well padded and the limb was prepped and draped in standard sterile fashion. A time out was called to identify proper site, proper procedure and proper surgeon. IV antibiotics per weight were admi nistered. I began by making a posterolateral stab incision with a 15 blade. A blunt trochar was placed into the glenohumeral joint and I insufflated the joint with saline and a 30 degree arthroscope was placed. I established an outside- in anterior portal just distal to the biceps tendon. I then began my inspection of the glenohumeral joint. There was a low grade partial tear of the biceps anchor with min labral involvmenet (Type 1 SLAP). This was debrided with tissue ablator. There were minimal cartilage changes at the inferior glenoid without humeral head changes. There was a near full thickness undersurface RTC tear with a few intact fibers remaining. The subcapularis was intact. I debrided the loose cartilage of the glenoid and the degenerative labral tearing.. I then removed the trochar and entered the subacromial space. A direct lateral portal was then established and I performed a bursectomy. The cuff was then examined. There was a full thickness tear of the supraspinatus without retraction. The tear was mobile and the tissue quality was relatively good. I placed two medial row double loaded anchors after using a tap just adjacent to the articular cartilage and then brought the suture limbs ( 8) through the medial cuff. I then debrided the bare area down to bleeding bone and, using a cross bridge configuration, brought 4 limbs to each of two lateral 5.0 anchors. This re-approximated the cuff anatomy anatomically. Once I was satisfied with the repair final images were captured and I performed a 5 mm sub acromial decomrpession with an oval lizy. I removed all instrumentation. Portals were closed with nylon. Patient was placed in an abduction sling, extubated and brought to the recovery room in stable condition. There were no known complications.
== END 2024-07-22 15:56 | disposition home or self-care (01) ==
LOC: HO.SSS 09:20
PROVIDERS: PCP Family Medicine; Visit Provider Orthopaedic Surgery
PROC: (CPT 29827; principal; 2024-07-22 13:20)
DX: M75.121 Complete rotator cuff tear or rupture of right shoulder, not specified as traumatic (principal); M19.011 Primary osteoarthritis, right shoulder; I10 Essential (primary) hypertension; Z79.899 Other long term (current) drug therapy; Z98.890 Other specified postprocedural states
CPT/HCPCS: 29827; 29826; C1713; J0131; J0171; J0665; J0690; J1100; J2003; J2250; J2405; J2704; J3010

== ENCOUNTER → 2024-07-22 09:19 | Outpatient (BNV) | payer MEDICARE, SELFPAY | PROVIDERS: PCP Family Medicine; Visit Provider Orthopaedic Surgery | DX: M75.121 Complete rotator cuff tear or rupture of right shoulder, not specified as traumatic (principal); S43.431A Superior glenoid labrum lesion of right shoulder, initial encounter | CPT/HCPCS: 29827 ==

== ENCOUNTER 2024-07-30 14:18 | Outpatient (AMB) | payer MEDICARE, SELFPAY ==
--- NOTE | 2024-07-30 15:01 | MHC.OFFVIS ---
Vital Signs 07/30/24 15:05 Height 5 ft 5 in Weight 200 lb BMI 33.3 Handedness Right Intake Visit Reasons: PO RT RTC repair 07/22/24 NE Intake Note: David is a 69 year old right hand dominant male who presents today for a post op appointment s/p Right RTC repair with SAD 07/22/24 NE. Patient reports having little no pain. He has been working on his pendulum exercises. Allergies No Known Allergies Allergy (Verified 07/30/24 15:04) HPI HPI PO RT RTC repair 07/22/24 NE: Details: Patient presents to the office today status post right shoulder rotator cuff repair performed on 07/22/[address] Rockwell. He presents in the abduction sling inappropriate position. Reports no pain when he is not moving the shoulder however when he moves his shoulder he does have some pain. He has been performing pendulum exercises as instructed. [facility] Medical History (Updated 07/06/24 @ 09:27 by Pricila Jordan NP) Varicose veins of right lower extremity with inflammation HTN (hypertension) Surgical History (Updated 07/30/24 @ 15:23 by Jessica Corral PA-C) History of ankle surgery H/O shoulder surgery Previous back surgery Social History Patient Tobacco Use Status: Never used Tobacco Current occupational status: disabled Current occupation: right hand dominant Review of Systems Const All systems reviewed & are unremarkable except as noted in HPI and below Physical Exam Vital Signs: BMI result Body Mass Index 33.3 Const General: cooperative, healthy appearing, comfortable, no acute distress, well developed, alert and awake Orientation/consciousness: patient oriented x3 HEENT Head: Yes normal to inspection, Yes normocephalic and Yes atraumatic Eyes General: appearance normal, both eyes and all related structures Neck Neck: Yes normal visual inspection and Yes no lymphadenopathy Resp Effort & Inspection: normal respiratory effort and able to speak in complete sentences Cardio Rate: regular rate Peripheral pulses: Peripheral pulses 2+ throughout Skin General skin exam: no rashes or lesions noted Neuro General: patient oriented x3 Extrem Other: Right shoulder are normal to inspection no ecchymosis erythema or drainage. Sutures intact. Forward flexion abduction to 45 degrees. External rotation to neutral. NVI. Psych Mental Status: mental status grossly normal Assessment & Plan Assessment & Plan (1) Status post right rotator cuff repair: Code(s): Z98.890 - Other specified postprocedural states Category: Surgical Plan Patient presents to the office today status post right shoulder rotator cuff repair performed on 07/22/[address] Rockwell. He presents in the abduction sling inappropriate position. Reports no pain when he is not moving the shoulder however when he moves his shoulder he does have some pain. He has been performing pendulum exercises as instructed. While in the office today sutures are removed and Steri-Strips were applied. He should remain in the sling for 6 weeks postoperatively. I placed an order for physical therapy to begin within the next week. He will continue performing his pendulum exercises. His next follow-up will be in [address] Rockwell, sooner if needed. Coding Level of Care Code Global (43151) Diagnoses Status post right rotator cuff repair Z98.890
[2024-07-30 15:05] VITALS: BMI 33.3
== END 2024-07-30 15:20 | disposition home or self-care (01) ==
PROVIDERS: PCP Family Medicine; Visit Provider Physician Assistant
DX: Z98.890 Other specified postprocedural states (principal)
CPT/HCPCS: 99024

== ENCOUNTER → 2024-07-30 14:18 | Outpatient (BNVA) | payer MEDICARE, SELFPAY | PROVIDERS: PCP Family Medicine; Visit Provider Physician Assistant | DX: Z98.890 Other specified postprocedural states (principal) | CPT/HCPCS: 99212 ==

== ENCOUNTER 2024-08-27 09:02 | Outpatient (AMB) | payer MEDICARE, SELFPAY ==
--- NOTE | 2024-08-27 09:12 | A.OFFVIS_ITS ---
Vital Signs 08/27/24 09:48 Height 5 ft 5 in Weight 200 lb BMI 33.3 Intake Visit Reasons: PO RT RTC repair 07/22/24 NE Intake Note: David is a 69 year old right hand dominant male who presents today for a post op appointment s/p Right RTC repair with SAD 07/22/24 NE. Patient rpeorts that he is doing very well, he has pain after PT. Allergies No Known Allergies Allergy (Verified 07/30/24 15:04) HPI HPI PO RT RTC repair 07/22/24 NE: Details: David is a 69 year old right hand dominant male who presents today for a post op appointment s/p Right RTC repair with SAD 07/22/24 NE. Patient reports that he is doing very well, he has pain after PT. he has occasionally been taking 1 pain pill after PT and he is currently out. [facility] Medical History (Updated 07/06/24 @ 09:27 by Pricila Jordan NP) Varicose veins of right lower extremity with inflammation HTN (hypertension) Surgical History (Updated 07/30/24 @ 15:23 by Jessica Corral PA-C) History of ankle surgery H/O shoulder surgery Previous back surgery Social History Patient Tobacco Use Status: Never used Tobacco Current occupational status: disabled Current occupation: right hand dominant Physical Exam Vital Signs: BMI result Body Mass Index 33.3 Extrem Other: Portals are clean dry and intact. He has 0 degrees of external rotation passively but 90 degrees of passive abduction. Active forward flexion to 90 degrees. He is wearing a sling. He is moving his fingers and elbow comfortably and without complaint. Assessment & Plan Assessment & Plan (1) Status post right rotator cuff repair: Code(s): Z98.890 - Other specified postprocedural states Category: Surgical Plan: Ever restore is 1 month status post right shoulder rotator cuff repair. Follow up to see me in 2 months. Continue PT. He should continue sling usage for another 2 weeks and then may discard. I refilled his pain pills. Medications: Changed From oxycodone Partial Fill upon patient request. 5 mg PO Q4-6H 7 days PRN 42 tabs 0RF pain To oxycodone Partial Fill upon patient request. 5 mg PO DAILY PRN 30 tabs 0RF pain Coding Level of Care Code Global (00246) Diagnoses Status post right rotator cuff repair Z98.890
--- OUTSIDE RECORDS SUMMARY | 2024-08-27 09:28 | XMS_ITS | Encounter Summary ---
Author Organization [id number] Address [address] [facility] [address] [place] [address] Care Team Providers Care Manager Administrative Services Name Role Phone Alka Caraballo MD Primary Care Provider [phone] Encounter Details Date Type Department Care Team (Latest Contact Info) Description 08/10/2024 11:30 AM EST Office Visit [facility] [address] [place], [place] [phone] Alka Caraballo MD [address] [place], [place] [phone] Cervical radiculopathy (Primary Dx); Hypertension, unspecified type; Varicose veins of both lower extremities; Chronic right shoulder pain; Discogenic low back pain; Chronic pain of both shoulders; At increased risk for cardiovascular disease Social History Tobacco Use Types Packs/Day Years Used Date Smoking Tobacco: Never Passive Smoke Exposure: Never Smokeless Tobacco: Never Alcohol Answer Date Recorded Frequency of Alcohol Consumption Not on file 04/30/2024 Average Number of Drinks Not on file 024 Frequency of Binge Drinking Not on file 04/14 Score 0 04/30/2024 Depression Answer Date Recorded Patient Health Questionnaire-9 Score 0 08/10/2024 Patient Health Questionnaire-9 Score 0 08/10/2024 Last PHQ-9: Questionnaire Data Not on file 0 08/10/2024 Housing Stability Answer Date Recorded What is your housing situation today? I have eleazar linn 04/30/[address] you li ve. Do you have problems with any of the following? None of the above 04/30/2024 Food Insecurity Answer Date Recorded Within the past 12 months, y ou worried that your food would run out before you got money to buy more: Never True 04/30/2024 Within the past 12 months,th e food you bought just didn't last and you didn't have enough money to get more: Never True Transportation Answer Date Recorded In the past 12 months, has l ack of transportation kept you from medical appts, meetings, work or from getting things needed for daily living? No 04/30/2024 Utilities Answer Date Recorded In the past 12 months, has t he electric, gas, oil or water company threatened to shut off services in your home? No 04/30/2024 Depression Answer Date Recorded Patient Health Questionnaire-2 Score 0 08/10/2024 Internet Access Answer Date Recorded Internet Access Q1 Yes 04/30/2024 Internet Access Q2 Not on file 04/30/2024 Sex and Gender Information Value Date Recorded Sex Assigned at Male 05/14/2022 10:14 AM EDT Legal Sex Male 10:14 AM EDT Gender Identity Male 05/14/2022 10:14 AM EDT Sexual Orientation Straight 05/14/2022 10 :14 AM EDT documented as of this encounter Last Filed Vital Signs Vital Sign Reading Time Taken Comments Blood Pressure 153/81 08/10/2024 11:01 AM EST Pulse 60 08/10/2024 11:01 AM EST Temperature 36.4 ??C (97.5 ??F) 08/10/2024 11:[address] Respiratory Rate 21 08/10/2024 11:01 AM EST Oxygen Saturation 99% 08/10/2024 11:01 AM EST Inhaled Oxygen Concentration - - Weight - - Height - - Body Mass Index - - documented in this encounter Progress Notes * Alka Caraballo MD - 08/10/2024 11:30 AM EST Subjective David Cueto is a 69 y.o. male who has cervical radiculopathy and HTN, and patient presents for pain management. Background: Our last encounter was 04/30/2024. He reported worsening right shoulder pain and function. Patient reported neck pain and dizziness. Ordered MRI of shoulder and cervical spine. Referred to ortho. Interval history: Cervical MRI on 05/16/24 Impression: Degenerative changes of the cervical spine causing central spinal and bilateral neural foraminal narrowing as described. Findings have progressed since the prior study. He underwent right rotator cuff repair on 07/22/24. Today: He reports experiencing pain in his right shoulder. His right arm is in the sling. He mentions taking a medication for the pain which has been effective. He is starting physical therapy tomorrow at [place]. Dressing and other daily activities have been difficult due to the pain. He currently denies neck pain or dizziness, possibly because he is distracted by his right shoulderpain. 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 He has not received an appointment yet. He reports that blood pressure readings at home are sometimes high, around 130, but sometimes it comes down. He is taking losartan. He notes that his blood pressure is a little high today possibly due to weather. He is advised to monitor BP at home and report if it remains high. He reports having cholesterol but no issues with blood sugar. He reports previously experiencing dizziness but says it has been resolved. Review of Systems Constitutional: Negative for activity change, appetite change and fever. Respiratory: Negative for shortness of breath. Cardiovascular: Negative for chest pain. Objective Vitals: 08/10/24 1101 BP: (!) 153/81 Pulse: 60 Resp: 21 Temp: 97.5 ??F (36.4 ??C) TempSrc: Temporal SpO2: 99% Physical Exam Constitutional: General: He is not in acute distress. Appearance: Normal appearance. He is not ill-appearing. HENT: Head: Normocephalic and atraumatic. Mouth/Throat: Mouth: Mucous membranes are moist. Eyes: Extraocular Movements: Extraocular movements intact. Pupils: Pupils are equal, round, and reactive to light. Cardiovascular: Rate and Rhythm: Normal rate and regular rhythm. Heart sounds: No murmur heard. Pulmonary: Effort: Pulmonary effort is normal. No respiratory distress. Breath sounds: Normal breath sounds. No wheezing or rhonchi. Skin: General: Skin is warm. Neurological: Mental Status: He is alert. Mental status is at baseline. Psychiatric: Mood and Affect: Mood normal. Results: Lab Results Component Value Date NA 138 05/01/2024 K 3.8 05/01/2024 CL 106 05/01/2024 CO2 24 05/01/2024 BUN 21 (H) 05/01/2024 CREATININE 1.01 05/01/2024 EGFR >60 05/01/2024 GLUCOSE 94 05/01/2024 TOTALBILIRUB 2.1 (H) 05/01/2024 AST 20 05/01/2024 ALT 15 05/01/2024 TOTPROTEIN 6.8 05/01/2024 ALB 4.2 05/01/2024 ALP 65 05/01/2024 Lab Results Component Value Date TRIG 150 (H) 05/01/2024 CHOL 189 05/01/2024 LDLCHOLCAL 114 (H) 05/01/2024 HDL 45 05/01/2024 Lab Results Component Value Date WBC 6.5 05/01/2024 HGB 14.6 05/01/2024 HCT 42.8 05/01/2024 PLT 250 05/01/2024 MCV 93.0 05/01/2024 The 10-year ASCVD risk score (Etelvina MAKI, et al., 2019) is: 29.8% Values used to calculate the score: Age: 69 years Sex: Male Is Non- : No Diabetic: No Tobacco smoker: No Systolic Blood Pressure: 153 mmHg Is BP treated: Yes HDL Cholesterol: 45 mg/dL Total Cholesterol: 189 mg/dL Screening and Health Care Maintenance: PHQ-2/9 Score: Patient Health Questionnaire-9 Score: 0 (08/10/2024 11:00 AM) Patient Health Questionnaire-2 Score: 0 (08/10/2024 11:00 AM) Thoughts that you would be better off or hurting yourself in some way: Not at all (08/10/2024 11:00 AM) CASANDRA-7 Score: CASANDRA-7 Total Score: 0 (08/10/2024 11:01 AM) Assessment/Plan Problem List Items Addressed This Visit Nervous Cervical radiculopathy - Primary Circulatory Hypertension -Goal BP < 150/90 per JNC-8 and < 130 per ACC/AHA guideline (Treatment threshold >=130/80 ) -BP elevated today -Continue working on lifestyle modifications -Increase Losartan to 25 mg daily Varicose veins of both lower extremities - 04/16/23 Venous study showed b/l varicose veins - Seen by vascular specialist, Dr. Sepulveda on 05/27/23. - Continue Compression Stocking - Continue leg elevation, low-sodium diet, and adequate physical activity. Musculoskeletal Discogenic low back pain -s/p discectomy in 1991 -continue judicious use of meloxicam -home back exercise program as tolerated Chronic pain of both shoulders -s/p left rotator cuff repair in 2013 -Patient reports worsening pain and limited range of motion in the right shoulder. Will evaluate with MRI and refer to orthopedist. -Continue judicious use of meloxicam Right shoulder pain No Known Allergies Current Outpatient Medications Medication Instructions hydrocortisone 2.5 % cream APPLY 1 GRAM TOPICALLY TO AFFECTED AREA(S) TWICE DAILY losartan (Cozaar) 25 MG tablet Take 1 tablet by mouth once daily meloxicam (Mobic) 7.5 MG tablet TAKE 1 TABLET BY MOUTH ONE OR TWO TIMES DAILY NEEDED FOR PAIN DONOT TAKE EVERYDAY Follow-up: 3 mo or sooner if any problem arises. Scribe Attestation: David Crocker, am serving as a scribe to document services personally performed by Alka Caraballo MD,based on the patient's response to questions by provider and provides statements to me. Physicians Attestation: Alka Crocker, have reviewed the information by the scribe, Rosendo Mike, for accuracy and agree with its content. documented in this encounter Miscellaneous Notes * Assessment & Plan Note - Alka Caraballo MD - 08/15/2024 6:12 PM ESTAssociated Problem(s): At increased risk for cardiovascular disease - patient was hesitant to start statin therapy - will discuss again - continue lifestyle modifications * Assessment & Plan Note - Alka Caraballo MD - 08/15/2024 6:09 PM ESTAssociated Problem(s): Right shoulder pain - rotator cuff tear - s/p rotator cuff repair on 07/22/24 - continue judicious use of oxycodone and meloxicam - starting PT - follow recommendations by orthopedist * Assessment & Plan Note - Alka Caraballo MD - 08/15/2024 6:07 PM ESTAssociated Problem(s): Cervical radiculopathy - Cervical MRI on 05/16/24: Degenerative changes of the cervical spine causing central spinal and bilateral neural foraminal narrowing as described. Findings have progressed since the prior study. - referred to a neurosurgeon - continue judicious use of meloxicam * Assessment & Plan Note - David Gottlieb - 08/10/2024 11:56 AM ESTAssociated Problem(s): Discogenic low back pain -s/p discectomy in 1991 -continue judicious use of meloxicam -home back exercise program as tolerated * Assessment & Plan Note - David Gottlieb - 08/10/2024 11:56 AM ESTAssociated Problem(s): Chronic pain of both shoulders - s/p left rotator cuff repair in 2013 - s/p right rotator cuff repair in Jul 2024 -Continue judicious use of meloxicam * Assessment & Plan Note - David Gottlieb - 08/10/2024 11:56 AM ESTAssociated Problem(s): Varicose veins of both lower extremities - 04/16/23 Venous study showed b/l varicose veins - Seen by vascular specialist, Dr. Sepulveda on 05/27/23. - Continue Compression Stocking - Continue leg elevation, low-sodium diet, and adequate physical activity. * Assessment & Plan Note - David Gottlieb - 08/10/2024 11:55 AM ESTAssociated Problem(s): Hypertension -Goal BP < 150/90 per JNC-8 and < 130 per ACC/AHA guideline (Treatment threshold >=130/80 ) -BP elevated today, likely situational -Continue working on lifestyle modifications -Continue Losartan to 25 mg daily documented in this encounter Plan of Treatment Not on file documented as of this encounter Visit Diagnoses Diagnosis Cervical radiculopathy- Primary Brachial neuritis or radiculitis nos Hypertension, unspecified type Varicose veins of both lower extremities Chronic right shoulder pain Pain in joint, shoulder region Discogenic low back pain Chronic pain of both shoulders At increased risk for cardiovascular disease documented in this encounter Additional Health Concerns Assessment Noted Time PHQ-9 Depression Total Score: 0 08/10/19 25 11:00 AM EST documented as of this encounter Care Teams Manager Administrative Services Relationship Specialty Start Date End Date Alka Caraballo MD [address] [place] [id number] PCP - General Family Medicine 12/11/13 documented as of this encounter
--- OUTSIDE RECORDS SUMMARY | 2024-08-27 09:28 | XMS_ITS | Encounter Summary ---
Author Organization [employer] Address [address] [facility] 7t [place] [address] Care Team Providers Care Phonograph Cartridge Assembler Name Role Phone Alka Caraballo MD Primary Care Provider [phone] Reason for Referral * Consultation (Routine) - Closed Specialty Diagnoses / Procedures Referred By Marvin nunez Referred To Contact Neurosurgery Diagnoses Cervical spinal stenosis Alka Caraballo MD [address] [place] [phone] Phone: tel: fax: [facility] Referral ID Status Reason Start Date Expiration Date V isits Requested Visits Authorized [id number] Closed Specialty Services Required 07/22/2024 07/22/2025 1 1 Encounter Details Date Type Department Care Team (Late st Contact Info) Description 07/22/[address] [facility] [address] [place] [id number] Alka Caraballo MD [address] [place] [address] [phone] Cervical spinal stenosis (Primary Dx) Social History Tobacco Use Types Packs/Day Years Used Date Smoking Tobacco: Never Passive Smoke Exposure: Never Smokeless Tobacco: Never Alcohol Answer Date Recorded Frequency of Alcohol Consumption Not on file 04/30/2024 Average Number of Drinks Not on file 024 Frequency of Binge Drinking Not on file 04/14 Score 0 04/30/2024 Depression Answer Date Recorded Patient Health Questionnaire-9 Score 2 04/30/2024 Patient Health Questionnaire-9 Score 2 04/30/2024 Last PHQ-9: Questionnaire Data Not on file 1 Housing Stability Answer Date Recorded What is [...] Answer Date Recorded Patient Health Questionnaire-2 Score 1 04/30/2024 Internet Access Answer Date Recorded Internet Access Q1 Yes 04/30/2024 Internet Access Q2 Not on file 04/30/2024 Sex and Gender Information Value Date Recorded Sex Assigned at Male 05/14/2022 10:14 AM EDT Legal Sex Male 10:14 AM EDT Gender Identity Male 05/14/2022 10:14 AM EDT Sexual Orientation Straight 05/14/2022 10 :14 AM EDT documented as of this encounter Plan of Treatment Scheduled Referrals Name Type Priority Associated Diagnoses Order Schedule Referral to Neurosurgery Outpatient Referral Routine Cervical spinal stenosis Expected: 07/22/2024 (Approximate), Expires: 07/22/2025 documented as of this encounter Visit Diagnoses Diagnosis Cervical spinal stenosis- Primary Spinal stenosis in cervical region documented in this encounter Additional Health Concerns Assessment Noted Time PHQ-9 Depression Total Score: 2 04/30/20 24 9:02 AM EDT documented as of this encounter Care Teams Phonograph Cartridge Assembler Relationship Specialty Start Date End Date Alka Caraballo MD [address] [place] [address] PCP - General Family Medicine 12/11/13 documented as of this encounter
--- OUTSIDE RECORDS SUMMARY | 2024-08-27 09:28 | XMS_ITS | Encounter Summary ---
Author Organization [employer] Address [address] [place] [address] 7t [place] [address] Care Team Providers Care Supervisor Porcelain Department Name Role Phone Alka Caraballo MD Primary Care Provider [phone] Encounter Details Date Type Department Care Team (Latest Contact Info) Description 10/21/2020 Abstract [facility] CONVERSIONS Dental, Provider, DDS Social History Tobacco Use Types Packs/Day Years Used Date Smoking Tobacco: Never Assessed Sex and Gender Information Value Date Recorded Sex Assigned at Male 05/14/2022 10:14 AM EDT Legal Sex Male 10:14 AM EDT Gender Identity Male 05/14/2022 10:14 AM EDT Sexual Orientation Straight 05/14/2022 10 :14 AM EDT documented as of this encounter Plan of Treatment Not on file documented as of this encounter Visit Diagnoses Not on filedocumented in this encounter Care Teams Supervisor Porcelain Department Relationship Specialty Start Date End Date Alka Caraballo MD [address] [place] [id number] PCP - General Family Medicine 12/11/13 documented as of this encounter
--- OUTSIDE RECORDS SUMMARY | 2024-08-27 09:28 | XMS_ITS | Encounter Summary ---
Author Organization [employer] Address [address] [place] [address] 7t [place] [address] Care Team Providers Care Building Pressure Washer Name Role Phone Alka Caraballo MD Primary Care Provider [phone] Encounter Details Date Type Department Care Team (Latest Contact Info) Description 01/19/[address] [facility] CONVERSIONS Dental, Provider, DDS Social History Tobacco [...] on filedocumented in this encounter Care Teams Building Pressure Washer Relationship Specialty Start Date End Date Alka Caraballo MD [address] [place] [id number] PCP - General Family Medicine 12/11/13 documented as of this encounter
--- OUTSIDE RECORDS SUMMARY | 2024-08-27 09:29 | XMS_ITS | Encounter Summary ---
Author Organization [employer] Address [address] [place] [address] 7[address] [place] [address] Care Team Providers Care Hogshead Salvage Name Role Phone Alka Caraballo MD Primary Care Provider [phone] Encounter Details Date Type Department Care Team (Latest Contact Info) Description 02/19/2022 Abstract [facility] CONVERSIONS Dental, Provider, DDS Social History [...] on filedocumented in this encounter Care Teams Hogshead Salvage Relationship Specialty Start Date End Date Alka Caraballo MD [address] [place] [address] PCP - General Family Medicine 12/11/13 documented as of this encounter
--- OUTSIDE RECORDS SUMMARY | 2024-08-27 09:29 | XMS_ITS | Encounter Summary ---
Author Organization [employer] Address [address] [place] [address] 7t [place] [address] Care Team Providers Care Linotyper Name Role Phone Alka Caraballo MD Primary Care Provider Encounter Details Date Type Department Care Team (Late st Contact Info) Description 07/18/2022 Abstract [facility] MEDICINE [address] [place], [place] [phone] Alka Caraballo MD [address] [place], [place] [phone] Social History Tobacco Use Types Packs/Day Years Used Date Smoking Tobacco: Never Passive Smoke Exposure: Never Smokeless Tobacco: Never PHQ-2 Answer Date Recorded Patient Health Questionnaire-2 Score 0 07/18/2022 Depression Answer Date Recorded Patient Health Questionnaire-2 Score 0 07/18/2022 Sex and Gender Information Value Date Recorded Sex Assigned at Male 05/14/2022 10:14 AM EDT Legal Sex Male 10:14 AM EDT Gender Identity Male 05/14/2022 10:14 AM EDT Sexual Orientation Straight 05/14/2022 10 :14 AM EDT COVID-19 Exposure Response Date Recorded In the last 10 days, have yo u been in contact with someone who was confirmed or suspected to have Coronavirus/COVID-19? No / Unsure 07/18/2022 8:49 AM EST documented as of this encounter Plan of Treatment Not on file documented as of this encounter Visit Diagnoses Not on filedocumented in this encounter Care Teams Linotyper Relationship Specialty Start Date End Date Alka Caraballo MD [address] [place], [place] [phone] PCP - General Family Medicine 12/11/13 documented as of this encounter
--- OUTSIDE RECORDS SUMMARY | 2024-08-27 09:29 | XMS_ITS | Clinical Summary ---
Author Organization [employer] Address [address] [place] [address] 7t [place] [address] Care Team Providers Care Meal Grinder Tender Name Role Phone Alka Caraballo MD Primary Care Provider [phone] Allergies No known active allergies Medications hydrocortisone 2.5 % cream APPLY 1 GRAM TOPICALLY TO AFFECTED AREA(S) TWICE DAILY 30 g 1 03/04/20 24 Active meloxicam (Mobic) 7.5 MG tabletIndicati ons:Chronic pain of both shoulders,Disc ogenic low back pain TAKE 1 TABLET BY MOUTH ONE OR TWO TIMES DAILY NEEDED FOR PAIN DO NOT TAKE EVERYDAY 30 tablet 3 04/30/20 24 Active losartan (Cozaar) 25 MG tablet Take 1 tablet by mouth once daily 90 tablet 3 08/10/19 25 Active losartan (Cozaar) 25 MG tablet Take 1 tablet by mouth once daily 90 tablet 3 04/30/20 24 025 Discontinued(Re order (will not trigger notification to Pharmacy)) Active Problems Problem Noted Date Diagnosed Date At increased risk for cardiovascular disease 07/2024 Assessment & Plan (08/15/2024 6:12 PM EST): - patient was hesitant to start statin therapy - will discuss again - continue lifestyle modifications Right shoulder pain 04/30/2024 Assessment & Plan (08/15/2024 6:09 PM EST): - rotator cuff tear - s/p rotator cuff repair on 07/22/24 - continue judicious use of oxycodone and meloxicam - starting PT - follow recommendations by orthopedist Venous insufficiency of both lower extremities 1 09/10/2022 Assessment & Plan (04/30/2024 9:31 AM EDT): - 04/15/23 Venous study --Right: Deep venous reflux in mid femoral vein, venous reflux within GSV from the level of saphenofemoral junction to the below the knee segment, reflux within SSV. Varicose veins. --Left: Deep venous reflux within common femoral vein Venous reflux within GSV. Varicosities. - Seen by Dr. Sepulveda on 07/2023. Patient was supposed to have ablation but patient decided not to have the procedure. Assessment & Plan (07/10/2023 4:55 AM EST): - 04/15/23 Venous study --Right: Deep venous reflux in mid femoral vein, venous reflux within GSV from the level of saphenofemoral junction to the below the knee segment, reflux within SSV. Varicose veins. --Left: Deep venous reflux within common femoral vein Venous reflux within GSV. Varicosities. - Seen by Dr. Sepulveda on 05/27/23. Given some education about varicose veins and venous insufficiency. Dermatitis 07/10/2023 Assessment & Plan (07/12/2023 12:15 PM EST): - avoid scratching - use hypoallergenic unscented skin care products - liberal moisturization with emollients - judicious use of topical steroid Varicose veins of both lower extremities 023 Assessment & Plan (08/10/2024 11:56 AM EST): - 04/16/23 Venous study showed b/l varicose veins - Seen by vascular specialist, Dr. Sepulveda on 05/27/23. - Continue Compression Stocking - Continue leg elevation, low-sodium diet, and adequate physical activity. Assessment & Plan (07/10/2023 4:58 AM EST): - 04/16/23 Venous study showed b/l varicose veins - Seen by vascular specialist, Dr. Sepulveda on 05/27/23. - Continue Compression Stocking - Continue leg elevation, low-sodium diet, and adequate physical activity. Assessment & Plan (04/08/2023 9:38 PM EDT): -Will eval with Venous study -Rx Compression Stocking -elevate legs -continue adequate physical activity and low-sodium diet Dental calculus 02/05/2023 Localized gingival recession 02/05/2023 Excessive attrition of teeth, limited to enamel 02/05/2023 History of UTI 07/21/2022 Assessment & Plan (07/21/2022 6:45 AM EST): -May 2022, 1st episode -E coli resistant to ampicillin. Treated with ciprofloxacin. -?kidney stone -reviewed si/sx to seek further medical attention Chronic pain of both shoulders 07/18/2022 Assessment & Plan (08/15/2024 6:10 PM EST): - s/p left rotator cuff repair in 2013 - s/p right rotator cuff repair in Jul 2024 -Continue judicious use of meloxicam Assessment & Plan (04/30/2024 9:33 AM EDT): -s/p left rotator cuff repair in 2013 -Patient reports worsening pain and limited range of motion in the right shoulder. Will evaluate with MRI and refer to orthopedist. -Continue judicious use of meloxicam Assessment & Plan (07/12/2023 12:16 PM EST): -s/p left rotator cuff repair in 2013 -Continue judicious use of meloxicam Assessment & Plan (04/08/2023 2:37 PM EDT): -s/p left rotator cuff repair in 2013 -Continue judicious use of meloxicam Assessment & Plan (07/21/2022 6:42 AM EST): -s/p left rotator cuff repair in 2013 -Continue judicious use of meloxicam GERD (gastroesophageal reflux disease) Assessment & Plan (07/21/2022 6:42 AM EST): -EGD on 06/05/19 -Continue omeprazole 20 mg daily -Continue judicious use of meloxicam Class 1 obesity due to exces s calories without serious comorbidity in adult 07/19/2016 Assessment & Plan (07/21/2022 6:43 AM EST): -Continue staying physically active -Check lipid profile and A1C periodically Hypertension 06/23/2015 Assessment & Plan (08/15/2024 6:08 PM EST): -Goal BP < 150/90 per JNC-8 and < 130 per ACC/AHA guideline (Treatment threshold >=130/80 ) -BP elevated today, likely situational -Continue working on lifestyle modifications -Continue Losartan to 25 mg daily Assessment & Plan (04/30/2024 9:30 AM EDT): -Goal BP < 150/90 per JNC-8 and < 130 per ACC/AHA guideline (Treatment threshold >=130/80 ) -BP elevated today -Continue working on lifestyle modifications -Increase Losartan to 25 mg daily Assessment & Plan (07/12/2023 12:14 PM EST): -Goal BP < 150/90 per JNC-8 and < 130 per ACC/AHA guideline (Treatment threshold >=130/80 ) -Continue working on lifestyle modifications -Continue Losartan 12.5mg daily -Follow up in 4-6 mo, sooner if any problem arises Assessment & Plan (04/08/2023 2:41 PM EDT): -Goal BP < 150/90 per JNC-8 and < 130 per ACC/AHA guideline (Treatment threshold >=130/80 ) -Continue working on lifestyle modifications -will start Losartan 12.5mg daily -Follow up in 3 mo, sooner if any problem arises Assessment & Plan (07/21/2022 6:41 AM EST): -Goal BP < 150/90 per JNC-8 and < 130 per ACC/AHA guideline (Treatment threshold >=130/80 ) -Agreed to continue monitoring / treating without medication -Continue checking home BP and notify us if BP consistently elevated > 150/90 -Continue working on lifestyle modifications -Follow up in 6 mo, sooner if any problem arises Cervical radiculopathy 04/09/2012 Assessment & Plan (08/15/2024 6:07 PM EST): - Cervical MRI on 05/16/24: Degenerative changes of the cervical spine causing central spinal and bilateral neural foraminal narrowing as described. Findings have progressed since the prior study. 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 Assessment & Plan (08/10/2024 11:56 AM EST): -s/p discectomy in 1991 -continue judicious use of meloxicam -home back exercise program as tolerated Assessment & Plan (04/30/2024 9:17 AM EDT): -s/p discectomy in 1991 -continue judicious use of meloxicam -home back exercise program as tolearted Assessment & Plan (07/12/2023 12:16 PM EST): -s/p discectomy in 1991 -continue judicious use of meloxicam -home back exercise program as tolearted Assessment & Plan (04/08/2023 2:37 PM EDT): -s/p discectomy in 1991 -continue judicious use of meloxicam -home back exercise program as tolearted Assessment & Plan (07/21/2022 6:44 AM EST): -s/p discectomy in 1991 -continue judicious use of meloxicam -home back exercise program as tolearted Resolved Problems Problem Noted Date Diagnosed Date Resolved Date Varicose veins of both lower extremities 07/10/2023 07/10/2023 Major depressive disorder 01/02/2012 Assessment & Plan (04/30/2024 9:17 AM EDT): -Hx hospitalization in 2000 -Previously on sertraline -Currently in [facility] Assessment & Plan (07/21/2022 6:43 AM EST): -Hx hospitalization in 2000 -Previously on sertraline -Currently in [facility] Encounters Date Type Department Care Team Description 08/10/2024 11:30 AM EST Office Visit [facility] MEDICINE [address] [place] [address] Alka Caraballo MD Cervical radiculopathy (Primary Dx); Hypertension, unspecified type; Varicose veins of both lower extremities; Chronic right shoulder pain; Discogenic low back pain; Chronic pain of both shoulders; At increased risk for cardiovascular disease 07/23/2024 Telephone [facility] [address] [place], [place] [phone] Kajal Villanueva RN Results 07/22/2024 Orders Only [address] [phone] Alka Caraballo MD Cervical spinal stenosis (Primary Dx) 05/29/2024 Orders Only [address] [phone] Parvin Lester MD Shoulder pain, unspecified chronicity, unspecified laterality (Primary Dx) 2024 Telephone [facility] [address] [place], [place] [phone] Alka Caraballo MD Medication Question from Last 3 Months Immunizations Name Administration Dates Next Due Influenza High-dose Quadriva lent Preservative Free 04/13/2022,04/12/2020 Influenza injectable quadriv alent IIV4 with preservative 06/23/2015 Influenza injectable quadriv alent preservative free 08/01/2021,07/16/2019,08/11/2018,07/19 Influenza, High Dose Seasona l, Preservative Free 04/30/2024 Influenza, IIV3, injectable 04/08/2023,1 08/18/2013,04/27/2011,04/07,03/24/2009 Influenza, Split (incl. cheryl fied surface antigen) 04/15/2013,08/11/2012 Pfizer Covid-19 Vaccine 12+ 04/30/2024, 3 Pneumococcal Conjugate PCV 13 08/11/2018 Pneumococcal Polysaccharide PPSV23 04/12/2020 TD (adult), 2 Lf tetanus tox oid, preservative free, adsorbed 01/10/2007,11/10/1996 Tdap 04/30/2024,01/06/2014 Zoster, Recombinant 01/07/2019,09/10/2018 Zoster, live 09/26/2015 Family History Medical History Relation Name Comments Coronary artery disease Brother Diabetes type II Brother Hypertension Brother at 53 Hypertension Mother Mental illness Sister Relation Name Status Comments Brother Mother Sister Social History Tobacco Use Types Packs/Day Years Used Date Smoking Tobacco: Never Passive Smoke Exposure: Never Smokeless Tobacco: Never Tobacco Cessation:Counseling Given: Not Answered Alcohol Answer Date Recorded Frequency of Alcohol [...] Orientation Straight 05/14/2022 10 :14 AM EDT Last Filed Vital Signs Vital Sign Reading Time Taken Comments Blood Pressure 153/81 08/10/2024 11:01 AM EST Pulse 60 08/10/2024 11:01 AM EST Temperature 36.4 ??C (97.5 ??F) 08/10/2024 11:[address] Respiratory Rate 21 08/10/2024 11:01 AM EST Oxygen Saturation 99% 08/10/2024 11:01 AM EST Inhaled Oxygen Concentration - - Weight 92.1 kg (203 lb) 04/30/2024 9:01 AM EDT Height 170.3 cm (5' 7.04 ) 07/10/2023 9:02 AM ES T Body Mass Index 31.76 07/10/2023 9:02 AM EST Plan of Treatment Health Maintenance Due Date Last Done Comments CT Colonography 1953 FIT DNA/Cologuard 1953 FIT 1953 FOBT 1955 Sigmoidoscopy 1955 Dental Oral Exam 08/09/2023 02/05/2023, 02/2022, 10/21/2020, Additional history exists Dental Prophylaxis 08/09/2023 02/05/2023, 0 02/19/2022, 10/21/2020, Additional history exists Dental X-Ray: Bitewings 02/07/2024 02/06/20 23, 02/19/2022, 10/21/2020, Additional history exists Dental X-Ray: Full Mouth 02/20/2025 022, 10/16/2017, 02/11/2014 SDOH Screening 04/30/2025 04/30/2024 Tobacco Screening 04/30/2025 04/30/2024 Alcohol/Substance Use Screening 08/10/2025 08/10/2024 Depression Screening 08/10/2025 08/10/2024, 08/10/19 25 RSV Patients and Patients Aged 60 years or older (1 - 1-dose 75+ series) 2028 Lipid Panel 05/01/2029 05/01/2024, 07/20/2022 Colonoscopy 06/02/2029 06/02/2019 Colorectal Cancer Screening 06/02/2029 DTaP/Tdap/Td Vaccines (3 - Td or Tdap) 04/30/2034 04/30/2024, 01/06/2014, 01/10/2007, Additional history exists Zoster Vaccines Completed 01/07/2019, 08/16, 09/26/2015 Pneumococcal Vaccine: 50+ Years Completed 04/12/2020, 08/11/2018 COVID-19 Vaccine Completed 04/30/2024, , 04/20/2022, Additional history exists Influenza Vaccine Completed 04/30/2024, , 04/13/2022, Additional history exists HIB Vaccines Aged Out No longer eligi ble based on patient's age to complete this topic HPV Vaccines Aged Out No longer eligi ble based on patient's age to complete this topic Hepatitis A Vaccines Aged Out No long er eligible based on patient's age to complete this topic Hepatitis B Vaccines Aged Out No long er eligible based on patient's age to complete this topic Hepatitis C Screening Discontinued IPV Vaccines Aged Out No longer eligi ble based on patient's age to complete this topic Meningococcal Vaccine Aged Out No tevin shyam eligible based on patient's age to complete this topic RSV under 20 months Aged Out No longe r eligible based on patient's age to complete this topic Rotavirus Vaccines Aged Out No longer eligible based on patient's age to complete this topic Procedures Procedure Name Priority Date/Time Associated Diagnosis Comments LIPID PANEL WITH REFLEX TO DIRECT LDL Routine 05/01/2024 8:50 AM EDT Hypertension, unspecified type Full PROPHYLAXIS - ADULT Routine 02/05/2023 8:00 AM EDT Dental calculus BITEWINGS - 4 RADIOGRAPHIC IMAGES Routine 02/05/2023 8:00 AM EDT Excessive attrition of teeth, limited to enamel Localized gingival recession Dental calculus PERIODIC ORAL EVALUATION - ESTABLISHED PATIENT Routine 02/05/2023 8:00 AM EDT INTRAORAL - COMPLETE SERIES OF RADIOGRAPHIC IMAGES Routine 02/19/2022 12:00 AM EDT HM COLONOSCOPY Routine 06/02/2019 from Last 3 Months or Most Recently Relevant to Health Maintenance Results * (ABNORMAL) Lipid Panel with Reflex to Direct LDL (05/01/2024 8:50 AM EDT) Triglycerides 150(H) <150 mg/dL [facility] Comment:Desirable Triglyceri de: less than 150 mg/dLBorderline High Triglyceride 150-199 mg/dLHigh Triglyceride: 200-499 mg/dLVery High Triglyceride: greater than or equal to 5OO mg/dL Cholesterol 189 <200 mg/dL [facility] Comment:Desirable Cholestero l: less than 200 mg/dLBorderline High Cholesterol: 200-239 mg/dLHigh Cholesterol: greater than 239 mg/dL LDL Cholesterol Calculated 114(H) <100 mg/dL [facility] Comment:Desirable LDL: less than 100 mg/dLNear Optimal/Above Optimal LDL: 110- 129 mg/dLBorderline High LDL: 130-159 mg/dLHigh LDL: 160-189 mg/dLVery High LDL: greater than or equal to 190 mg/dL HDL Cholesterol 45 >40 mg/dL [facility] Comment:Desirable HDL: great er than 40 mg/dL Note: This HDL assay may give artificially low results in patients with liver disease. Blood 05/01/2024 8:50 AM EDT 05/01/2024 12:02 PM EDT Alka Caraballo MD LAB BLOOD ORDERABLES Final Resul t [facility] [address] [place] [address] [phone] * Colonoscopy (06/02/2019) Colonoscopy peform Historical Provider HEALTH MAINTENANCE Edited Result - Final from Last 3 Months or Most Recently Relevant to Health Maintenance Insurance [facility] [address] MEDICARE DENTAL - HSN FULL (MEDICAID) Care Teams Meal Grinder Tender Relationship Specialty Start Date End Date Alka Caraballo MD [address] [place] [id number] PCP - General Family Medicine 12/11/13
[2024-08-27 09:48] VITALS: BMI 33.3
== END 2024-08-27 10:06 | disposition home or self-care (01) ==
PROVIDERS: PCP Family Medicine; Visit Provider Orthopaedic Surgery
DX: Z98.890 Other specified postprocedural states (principal)
CPT/HCPCS: 99024

== ENCOUNTER → 2024-08-27 09:02 | Outpatient (BNVA) | payer MEDICARE, SELFPAY | PROVIDERS: PCP Family Medicine; Visit Provider Orthopaedic Surgery | DX: Z47.89 Encounter for other orthopedic aftercare (principal); Z98.890 Other specified postprocedural states | CPT/HCPCS: 99212 ==

== ENCOUNTER 2024-10-08 10:00 | Outpatient (RCR) | payer MEDICARE, SELFPAY ==
--- NOTE | 2024-08-11 10:41 | MHC.PT.EP ---
[facility] [place] [facility] [place] [facility] [place] Office [address] Greg Cline [address] [phone] F: [phone] F: [phone] F: [phone] F: [phone] Physical Therapy Plan of Care Date of Evaluation: 08/11/24 Date of Surgery: 07/22/24 Diagnosis: This is a 69 yo male presenting to skilled PT with a script for s/p R RTC repair with SAD on 07/22/24. Assessment: This is a 69 yo male presenting to skilled PT with a script for s/p R RTC repair on 07/22/24. Patient underwent surgery with [facility] ortho. At his last follow up sutures are removed and Steri-Strips were applied. He should remain in the sling for 6 weeks postoperatively. Pain is located at the anterior and superior shoulder, pain is sharp. Pain is mainly with movement. He returns to ortho on 08/27. He has been doing pain med as needed, ice and pendulums at home. Assessment reveals pain that ranges from up to a 8/10 at the worst. Patient demos decreased R shoulder and cervical ROM, strength of B shoulder's, TTP at GHJ joint line, UT and impaired posture with forward head and rounded shoulders all expected s/p RTC surgery. Based on functional limitations, impaired QOL and pain tolerance patient is a good candidate for skilled PT 2x/wk for 6wks. Frequency and Duration: The patient will be seen 2x/wk for 6wks Short Term Goals: (In 2 weeks) Demo I with HEP Improve shoulder AROM by at least 10 degs Demo proper scapular recruitment with appropriate shoulder strengthening exercises Alf Goals: (in 6 wks) Improve shoulder nonpainful AROM to at least 75% full Demo at least 1 grade improvement in MMT for shoulder Improve SPADI by at least 10 points Improve overall functional QOL by at least 50% Patient to improve pain to no more than a 2/10 with ther-ex Treatment Plan: Modalities to reduce pain, spasms and effusion. Manual therapy to restore motion and function. Therapeutic exercise to improve strength and flexibility. Neuromuscular re-education for posture and balance. Therapeutic activities to return to functional activities of daily living. Electronically signed by: Bridget Charles PT Please sign and return to therapist. Thank you for your referral.
--- NOTE | 2024-11-05 07:50 | MHC.PT.DC ---
[facility] [place] Office [employer] [facility] [place] Office [address] Greg Cline [address] [phone] F: [phone] F: [phone] F: [phone] F: [phone] Physical Therapy Discharge Report Diagnosis: This is a 69 yo male presenting to skilled PT with a script for s/p R RTC repair with SAD on 07/22/24. Date of Surgery: 07/22/24 Date of Evaluation: 08/11/24 Date of Discharge: 11/05/24 Treatments to Date: 17 Cancellations to Date: 0 No Shows to Date: 0 Discharge Status: Improved Function Independent with HEP Patient Elected to Stop Discharge Summary: Patient came to 17 visits of PT. He saw ortho and the note states: 69-year-old male doing very well status post rotator cuff repair. He is a little stiff and overhead motion he understands this. I suspect this will take a long time to fully recover in it may never obtain full overhead motion but is mechanics below shoulder level are good and he is doing exercises. He is going to [place] now and he can follow up as needed. He understands this. Patient elected to continue on his own for now. DC'd chart after 30 days. Electronically signed by: Bridget Charles PT Please sign and return to therapist. Thank you for your referral.
== END 2024-11-05 07:50 | disposition home or self-care (01) ==
LOC: HO.PTCHIC 10:00
PROVIDERS: PCP Family Medicine; Visit Provider Physician Assistant
DX: Z98.890 Other specified postprocedural states (principal)
CPT/HCPCS: 97110; 97140; 97162

== ENCOUNTER 2024-10-26 09:13 | Outpatient (AMB) | payer MEDICARE, SELFPAY ==
--- NOTE | 2024-10-26 09:16 | MHC.OFFVIS ---
Vital Signs 10/26/24 09:17 Height 5 ft 5 in Weight 200 lb BMI 33.3 Intake Visit Reasons: OV RT RTC repair 07/22/24 NE Intake Note: David is a 69 year old right hand dominant male who presents today for a follow up appointment about 3 months s/p Right Rotator Cuff Repair with SAD 07/22/24. He continues to work with physical therapy. Allergies No Known Allergies Allergy (Verified 10/26/24 09:17) HPI HPI OV RT RTC repair 07/22/24 NE: Details: Three months postop doing well. He has no pain. He is still stiffness in overhead motion but happy with his progress so far. PFSH Medical History (Updated 07/06/24 @ 09:27 by Pricila Jordan NP) Varicose veins of right lower extremity with inflammation HTN (hypertension) Surgical History (Updated 07/30/24 @ 15:23 by Jessica Corral PA-C) History of ankle surgery H/O shoulder surgery Previous back surgery Social History Patient Tobacco Use Status: Never used Tobacco Current occupational status: disabled Current occupation: right hand dominant Physical Exam Vital Signs: BMI result Body Mass Index 33.3 Extrem Other: 20/80/110/hip pocket 4+/5 empty can on the right Assessment & Plan Assessment & Plan (1) Status post right rotator cuff repair: Code(s): Z98.890 - Other specified postprocedural states Category: Surgical Plan: 69-year-old male doing very well status post rotator cuff repair. He is a little stiff and overhead motion he understands this. I suspect this will take a long time to fully recover in it may never obtain full overhead motion but is mechanics below shoulder level are good and he is doing exercises. He is going to [place] now and he can follow up as needed. He understands this. Coding Level of Care Code Global (99238) Diagnoses Status post right rotator cuff repair Z98.890
[2024-10-26 09:17] VITALS: BMI 33.3
--- OUTSIDE RECORDS SUMMARY | 2024-10-26 10:09 | XMS_ITS | Encounter Summary ---
Author Organization [facility] Address [address] [place] [address] 7t [place] [address] Care Team Providers Care Potato Spotter Name Role Phone Alka Caraballo MD Primary Care Provider [phone] Encounter Details Date Type Department Care Team (Latest Contact Info) Description 10/21/2020 Abstract [facility] CONVERSIONS Dental, Provider, DDS Social History Tobacco Use Types Packs/Day Years Used Date Smoking Tobacco: Never Assessed Sex and Gender Information Value Date Recorded Sex Assigned at Male 05/14/2022 10:14 AM EDT Legal Sex Male 10:14 AM EDT Gender Identity Male 05/14/2022 10:14 AM EDT Sexual Orientation Straight 05/14/2022 10 :14 AM EDT documented as of this encounter Plan of Treatment Upcoming Encounters Date Type Department Care Team (Late st Contact Info) Description 11/11/2024 9:15 AM EDT Office Visit [facility] MEDICINE [address] [place] [address] Alka Caraballo MD [address] [place] [address] documented as of this encounter Visit Diagnoses Not on filedocumented in this encounter Care Teams Potato Spotter Relationship Specialty Start Date End Date Alka Caraballo MD [address] [place] [address] PCP - General Family Medicine 12/11/13 documented as of this encounter
--- OUTSIDE RECORDS SUMMARY | 2024-10-26 10:09 | XMS_ITS | Encounter Summary ---
Author Organization [employer] Address [address] [place] [address] 7t [place] [address] Care Team Providers Care Supervisor [employer] Name Role Phone Alka Caraballo MD Primary Care Provider [phone] Encounter Details Date Type Department Care Team (Late st Contact Info) Description 07/18/2022 Abstract [facility] MEDICINE [address] [place] [address] [phone] Alka Caraballo MD [address] [place] [address] [phone] Social History Tobacco Use Types Packs/Day Years [...] Description 11/11/2024 9:15 AM EDT Office Visit [facility]INE [address] [place] [address] [phone] Alka Caraballo MD [address] [place] [address] [phone] documented as of this encounter Visit Diagnoses Not on filedocumented in this encounter Care Teams Supervisor [employer] Relationship Specialty Start Date End Date Alka Caraballo MD [address] [place] [address] [phone] PCP - General Family Medicine 12/11/13 documented as of this encounter
--- OUTSIDE RECORDS SUMMARY | 2024-10-26 10:09 | XMS_ITS | Encounter Summary ---
Author Organization [facility] Address [address] [place] [address] [address]t [place] [address] Care Team Providers Care Gas Engine Operator Name Role Phone Alka Caraballo MD Primary Care Provider [phone] Encounter Details Date Type Department Care Team (Latest Contact Info) Description 01/19/2019 Abstract [facility] CONVERSIONS Dental, Provider, DDS Social [...] Description 11/11/2024 9:15 AM EDT Office Visit [facility] MEDICINE [address] [place] [address] Alka Caraballo MD [address] [place] [address] documented as of this encounter Visit Diagnoses Not on filedocumented in this encounter Care Teams Gas Engine Operator Relationship Specialty Start Date End Date Alka Caraballo MD [address] [place] [address] PCP - General Family Medicine 12/11/13 documented as of this encounter
--- OUTSIDE RECORDS SUMMARY | 2024-10-26 10:09 | XMS_ITS | Encounter Summary ---
Author Organization [employer] Address [address] [facility] [address]t [place] [address] Care Team Providers Care Clerical Coordinator Name Role Phone Alka Caraballo MD Primary Care Provider [phone] Reason for Referral * Consultation (Routine) - Closed Specialty Diagnoses / Procedures Referred By Marvin nunez Referred To Contact Neurosurgery Diagnoses Cervical spinal stenosis Alka Caraballo MD [address] [place] [address] Phone: tel: fax: [facility] Referral ID Status Reason Start Date Expiration Date V isits Requested Visits Authorized [id number] Closed Specialty Services Required 07/22/2024 07/22/2025 1 1 Encounter Details Date Type Department Care Team (Late st Contact Info) Description 07/22/2024 Orders Only [facility] MEDICINE [address] [place] [phone] Alka Caraballo MD [address] [place] [address] [phone] Cervical spinal stenosis (Primary Dx) Social History [...] Description 11/11/2024 9:15 AM EDT Office Visit [facility] MEDICINE [address] [place] [address] Alka Caraballo MD [address] [place] [address] Scheduled Referrals Name Type Priority Associated Diagnoses [...] documented as of this encounter Care Teams Clerical Coordinator Relationship Specialty Start Date End Date Alka Caraballo MD [address] [place] [address] PCP - General Family Medicine 12/11/13 documented as of this encounter
--- OUTSIDE RECORDS SUMMARY | 2024-10-26 10:09 | XMS_ITS | Clinical Summary ---
Author Organization [employer] Address [address] [place] [address] 7t [place] [address] Care Team Providers Care Physician Asst Name Role Phone Alka Caraballo MD Primary Care Provider [phone] Allergies No known active allergies Medications hydrocortisone 2.5 % cream APPLY 1 GRAM TOPICALLY TO AFFECTED AREA(S) TWICE DAILY 30 g 1 4 Active meloxicam (Mobic) 7.5 MG tabletIndicatio ns:Chronic pain of both shoulders,Disco genic low back pain TAKE 1 TABLET BY MOUTH ONE OR TWO TIMES DAILY NEEDED FOR PAIN DO NOT TAKE EVERYDAY 30 tablet 3 4 Active losartan (Cozaar) 25 MG tablet Take 1 tablet by mouth once daily 90 tablet 3 5 Active Active Problems Problem Noted Date Diagnosed Date [...] 2000 -Previously on sertraline -Currently in remissioin Encounters Date Type Department Care Team Description 09/25/2024 Population Health Risk Score [facility] Department [address] [place] [address] [place] [id number] Provider, Population Health Generic 09/03/2024 Telephone [facility] MEDICINE [address] [place], [place] [phone] Alka Caraballo MD 08/10/2024 11:30 AM EST Office Visit [facility] MEDICINE [address] [place] [address] Alka Caraballo MD Cervical radiculopathy (Primary Dx); Hypertension, unspecified type; Varicose veins of both lower extremities; Chronic right shoulder pain; Discogenic low back pain; Chronic pain of both shoulders; At increased risk for cardiovascular disease from Last 3 Months Immunizations Name Administration [...] your housing situation today? I have eleazar kaveh 04/30/[address] you li [...] 07/10/2023 9:02 AM EST Plan of Treatment Upcoming Encounters Date Type Department Care Team (Late st Contact Info) Description 11/11/2024 9:15 AM EDT Office Visit [facility] MEDICINE [address] [place] [address] Alka Caraballo MD [address] [place] [address] Health Maintenance Due Date Last Done Comments [...] 8:50 AM EDT) Triglycerides 150(H) <150 mg/dL [facility] Comment:Desirable Triglyceri de: less than 150 mg/dLBorderline High Triglyceride 150-199 mg/dLHigh Triglyceride: 200-499 mg/dLVery High Triglyceride: greater than or equal to 5OO mg/dL Cholesterol 189 <200 mg/dL [facility] Comment:Desirable Cholestero l: less than 200 mg/dLBorderline High Cholesterol: 200-239 mg/dLHigh Cholesterol: greater than 239 mg/dL LDL Cholesterol Calculated 114(H) <100 mg/dL [facility] Comment:Desirable LDL: less than 100 mg/dLNear Optimal/Above Optimal LDL: 110- 129 mg/dLBorderline High LDL: 130-159 mg/dLHigh LDL: 160-189 mg/dLVery High LDL: greater than or equal to 190 mg/dL HDL Cholesterol 45 >40 mg/dL [facility] Comment:Desirable HDL: great er than 40 mg/dL Note: This HDL assay may give artificially low results in patients with liver disease. Blood 05/01/2024 8:50 AM EDT 05/01/2024 12:02 PM EDT Alka Caraballo MD LAB BLOOD ORDERABLES Final Resul t [facility] [address] [place] [address] [phone] * Colonoscopy (06/02/2019) Colonoscopy peform Historical Provider HEALTH MAINTENANCE Edited Result - Final from Last 3 Months or Most Recently Relevant to Health Maintenance Insurance MEDICARE DENTAL - HSN FULL (MEDICAID) Care Teams Physician Asst Relationship Specialty Start Date End Date Alka Caraballo MD [address] [place] [address] PCP - General Family Medicine 12/11/13
--- OUTSIDE RECORDS SUMMARY | 2024-10-26 10:09 | XMS_ITS | Encounter Summary ---
Author Organization [employer] [facility] Address [address] [place] [address] 7t [place] [address] Care Team Providers Care Jewel Hole Driller Name Role Phone Alka Caraballo MD Primary Care Provider [phone] Encounter Details Date Type Department Care Team (Latest Contact Info) Description 02/19/2022 Abstract [facility] CONVERSIONS Dental, Provider, DDS Social History Tobacco [...] Description 11/11/2024 9:15 AM EDT Office Visit [facility] MEDICINE [address] [place] [address] Alka Caraballo MD [address] [place] [address] documented as of this encounter Visit Diagnoses Not on filedocumented in this encounter Care Teams Jewel Hole Driller Relationship Specialty Start Date End Date Alka Caraballo MD [address] [place] [address] PCP - General Family Medicine 12/11/13 documented as of this encounter
== END 2024-10-26 09:43 | disposition home or self-care (01) ==
LOC: HO.HOS 09:14
PROVIDERS: PCP Family Medicine; Visit Provider Orthopaedic Surgery
DX: Z47.89 Encounter for other orthopedic aftercare (principal); M75.121 Complete rotator cuff tear or rupture of right shoulder, not specified as traumatic
CPT/HCPCS: 99213

== ENCOUNTER → 2024-10-26 09:13 | Outpatient (BNVA) | payer MEDICARE, SELFPAY | PROVIDERS: PCP Family Medicine; Visit Provider Orthopaedic Surgery | DX: Z09 Encounter for follow-up examination after completed treatment for conditions other than malignant neoplasm (principal); Z87.39 Personal history of other diseases of the musculoskeletal system and connective tissue; Z98.890 Other specified postprocedural states | CPT/HCPCS: 99212 ==

== ENCOUNTER 2025-04-29 08:37 | Outpatient (REF) | payer MEDICARE, SELFPAY ==
--- OUTSIDE RECORDS SUMMARY | 2025-04-29 09:09 | XMS_ITS | Encounter Summary ---
Author Organization [email or web address] [facility] Address [address] [place] [address] 7[address] [place] [address] Care Team Providers Care Winding Rack Operator Name Role Phone Alka Caraballo MD Primary Care Provider [phone] Iban Greenberg PharmD Unavailable [phone] Encounter Details Date Type Department Care Team (Latest Contact Info) Description 01/19/2019 Abstract [facility] CONVERSIONS Dental, Provider, DDS Social History [...] Upcoming Encounters Date Type Department Care Team ( st Contact Info) Description 07/02/2025 9:00 AM EST Medication Management [facility] MEDICINE [address] [place] [address] Iban Greenberg PharmD [address] [place] [address] documented as of this encounter Visit Diagnoses Not on filedocumented in this encounter Care Teams Winding Rack Operator Relationship Specialty Start Date End Date Alka Caraballo MD [address] [place] [address] PCP - General Family Medicine 12/11/13 Iban Greenberg, RebekahD [address] [place] [address] Pharmacist Pharmacy 04/06/25 documented as of this encounter
--- OUTSIDE RECORDS SUMMARY | 2025-04-29 09:09 | XMS_ITS | Encounter Summary ---
Author Organization [employer] Address [address] [place] [address] 7t [place] [address] Care Team Providers Care Bus Trolley And Taxi Instructor Name Role Phone Alka Caraballo MD Primary Care Provider [phone] Iban Greenberg PharmD Unavailable [phone] Encounter Details Date Type Department Care Team (Late st Contact Info) Description 07/18/2022 Abstract [facility] MEDICINE [address] [place], [place] [phone] Alka Caraballo MD [address] [place], [place] [phone] Social History Tobacco Use Types Packs/Day Years [...] AM EST documented as of this encounter Functional Status * Over the past 2 weeks, how often have you been bothered by any of the following problems? Question Answer Date of Assessment Author Little interest or pleasure in doing things Not at all 07/18/2022 9:07 AM Emilie Kellogg [place] Feeling down, depressed, or hopeless Not at all 07/18/2022 9:07 AM Emilie Kellogg MA Patient Health Questionnaire-2 Score 0 07/18/2022 9:07 AM Gilmar Kellogg [place] documented as of this encounter Plan of Treatment Upcoming Encounters Date Type Department Care Team (Late st Contact Info) Description 07/02/2025 9:00 AM EST Medication Management [facility] MEDICINE [address] [place] [address] Iban Greenberg, PharmD [address] [place] [address] documented as of this encounter Visit Diagnoses Not on filedocumented in this encounter Care Teams Bus Trolley And Taxi Instructor Relationship Specialty Start Date End Date Alka Caraballo MD [address] [place] [address] PCP - General Family Medicine 12/11/13 Iban Greenberg, PharmD [address] [place] [phone] Pharmacist Pharmacy 04/06/25 documented as of this encounter
--- OUTSIDE RECORDS SUMMARY | 2025-04-29 09:09 | XMS_ITS | Encounter Summary ---
Author Organization [employer] Address [address] [place] [address] 7t [place] [address] Care Team Providers Care Circulator Name Role Phone Alka Caraballo MD Primary Care Provider [phone] Iban Greenberg PharmD Unavailable [phone] Reason for Referral * Consultation (Routine) - Closed Specialty Diagnoses / Procedures Referred By Contac t Referred To Contact Neurosurgery Diagnoses Cervical spinal stenosis Alka Caraballo MD [address] [place] [address] Phone: tel: fax: [facility] Referral ID Status Reason Start Date Expiration Date V isits Requested Visits Authorized [id number] Closed Specialty Services Required 07/22/2024 07/22/2025 1 1 Encounter Details Date Type Department Care Team (Late st Contact Info) Description 07/22/2024 Orders Only [facility] MEDICINE [address] [place] [address] [phone] Alka Caraballo MD [address] [place] [phone] Cervical spinal stenosis (Primary Dx) Social History [...] Description 07/02/2025 9:00 AM EST Medication Management [facility] MEDICINE [address] [place] [address] Iban Greenberg, PharmD [address] [place] [address] Scheduled Referrals Name Type Priority Associated Diagnoses [...] documented as of this encounter Care Teams Circulator Relationship Specialty Start Date End Date Alka Caraballo MD [address] [place] [address] PCP - General Family Medicine 12/11/13 Iban Greenberg, RebekahD [address] [place] [address] Pharmacist Pharmacy 04/06/25 documented as of this encounter
--- OUTSIDE RECORDS SUMMARY | 2025-04-29 09:09 | XMS_ITS | Clinical Summary ---
Author Organization [employer] Address [address] [facility] 7t [place] [address] Care Team Providers Care Outdoor Emergency Care Technician Name Role Phone Alka Caraballo MD Primary Care Provider [phone] Iban Greenberg PharmD Unavailable [phone] Allergies No known active allergies Medications losartan (Cozaar) 25 MG tablet Take 1 tablet by mouth once daily 90 tablet 3 03/09/20 25 Active celecoxib (CeleBREX) 200 MG capsule Take 1 capsule by mouth 2 times daily. 07/27/19 25 Active hydrocortisone 2.5 % cream APPLY 1 GRAM TOPICALLY TO AFFECTED AREA(S) TWICE DAILY 30 g 1 03/04/20 24 025 Discontinued(Me d list cleanup (will not trigger notification to Pharmacy)) meloxicam (Mobic) 7.5 MG tabletIndicati ons:Chronic pain of both shoulders,Disc ogenic low back pain TAKE 1 TABLET BY MOUTH ONE OR TWO TIMES DAILY NEEDED FOR PAIN DO NOT TAKE EVERYDAY 30 tablet 3 04/30/20 24 025 Discontinued(Me d list cleanup (will not trigger notification to Pharmacy)) Active Problems Problem Noted Date Diagnosed Date At increased risk for cardiovascular disease 07/2024 Assessment & Plan (03/09/2025 10:27 PM EDT): - patient was hesitant to start statin therapy - will discuss again - continue lifestyle modifications Assessment & Plan (08/15/2024 6:12 PM EST): [...] of both shoulders 07/18/2022 Assessment & Plan (03/09/2025 9:30 AM EDT): - s/p left rotator cuff repair in 2013 - s/p right rotator cuff repair in Jul 2024 -Continue judicious use of meloxicam Assessment & Plan (08/15/2024 6:10 PM EST): [...] comorbidity in adult 07/19/2016 Assessment & Plan (03/19/2025 3:23 PM EDT): -Continue staying physically active -Check lipid profile and A1C periodically Assessment & Plan (07/21/2022 6:43 AM EST): -Continue staying physically active -Check lipid profile and A1C periodically Hypertension 06/23/2015 Assessment & Plan (03/19/2025 3:21 PM EDT): -Goal BP < 130 per ACC/AHA guideline (Treatment threshold >=130/80 ) -BP elevated today, likely situational -BP reportedly normal at home -Continue working on lifestyle modifications -Continue Losartan 25 mg daily Assessment & Plan (08/15/2024 6:08 PM EST): [...] Encounters Date Type Department Care Team Description 04/05/2025 Travel 03/09/2025 11:30 AM EDT Office Visit [facility] MEDICINE [address] [place] [address] Alka Caraballo MD Hypertension, unspecified type (Primary Dx); Chronic pain of both shoulders; At increased risk for cardiovascular disease; Screening for diabetes mellitus; Dietary counseling; Exercise counseling; Class 1 obesity due to excess calories without serious comorbidity with body mass index (BMI) of 32.0 to 32.9 in adult 03/09/2025 Travel from Last 3 Months Immunizations Immunization Administration Dates Next Due Influenza High-dose Quadriva lent Preservative Free 04/13/2022,04/12/2020 Influenza injectable quadriv alent IIV4 with preservative 06/23/2015 Influenza injectable quadriv alent preservative free 08/01/2021,07/16/2019,08/11/2018,01/05 /2017 Influenza, High Dose Seasona l, Preservative Free 04/05/2025,04/30/2024 Influenza, IIV3, injectable 04/08/2023,1 08/18/2013,04/27/2011,04/07,03/24/2009 Influenza, Split (incl. cheryl fied surface antigen) 04/15/2013,08/11/2012 Pfizer Covid-19 Vaccine 12+ 04/30/2024, Pneumococcal Conjugate PCV 13 08/11/2018 Pneumococcal Polysaccharide [...] Sign Reading Time Taken Comments Blood Pressure 137/67 04/05/2025 9:16 AM EDT [employer] Home Monitor Pulse 54 04/05/2025 9:16 AM EDT Temperature 36.1 C (96.9 F) 03/09/2025 11:14 AM EDT Respiratory Rate 19 03/09/2025 11:1 4 AM EDT Oxygen Saturation 100% 03/09/2025 11: 14 AM EDT Inhaled Oxygen Concentration - - Weight 93.8 kg (206 lb 12.8 oz) 03/09/2025 11:14 AM EDT Height 170.2 cm (5' 7 ) 03/09/2025 11:1 4 AM EDT Body Mass Index 32.39 03/09/2025 11:14 AM EDT Plan of Treatment Upcoming Encounters Date Type Department Care Team (Late st Contact Info) Description 07/02/2025 9:00 AM EST Medication Management [facility] MEDICINE [address] [place] [address] Iban Greenberg, PharmD [address] [place] [address] Health Maintenance Due Date Last Done Comments CT Colonography 1953 FIT DNA/Cologuard 1955 FIT 1955 FOBT 1955 Sigmoidoscopy 1955 Dental Oral Exam 08/09/2023 02/05/2023, 02/2022, 10/21/2020, Additional history exists Dental Prophylaxis 08/09/2023 02/05/2023, 0 02/19/2022, 10/21/2020, Additional history exists Dental X-Ray: Bitewings 02/07/2024 02/06/20 23, 02/19/2022, 10/21/2020, Additional history exists Dental X-Ray: Full Mouth 02/20/2025 022, 10/16/2017, 02/11/2014 COVID-19 Vaccine ( season) 2025 04/30/2024, 07/10/2023, 04/20/2022, Additional history exists SDOH Screening 04/30/2025 04/30/2024 Alcohol/Substance Use Screening 08/10/2025 08/10/2024 Depression Screening 08/10/2025 08/10/2024, 08/10/19 25 Tobacco Screening 03/19/2026 03/19/2025 RSV Patients and Patients Aged 60 years or older (1 - 1-dose 75+ series) 2028 Lipid Panel 05/01/2029 05/01/2024, 07/20/2022 Colonoscopy 06/02/2029 06/02/2019 Colorectal Cancer Screening 06/02/2029 DTaP/Tdap/Td Vaccines (3 - Td or Tdap) 04/30/2034 04/30/2024, 01/06/2014, 01/10/2007, Additional history exists Zoster Vaccines Completed 01/07/2019, 08/16, 09/26/2015 Pneumococcal Vaccine: 50+ Years Completed 04/12/2020, 08/11/2018 Influenza Vaccine Completed 04/05/2025, , 04/08/2023, Additional history exists HIB Vaccines Aged Out [...] patient's age to complete this topic Meningococcal B Vaccine Aged Out No l onger eligible based on patient's age to complete this topic Meningococcal Vaccine Aged Out No tevin hsyam eligible based on patient's age to complete [...] 8:50 AM EDT) Triglycerides 150(H) <150 mg/dL [facility] Comment:Desirable Triglyceri de: less than 150 mg/dLBorderline High Triglyceride 150-199 mg/dLHigh Triglyceride: 200-499 mg/dLVery High Triglyceride: greater than or equal to 5OO mg/dL Cholesterol 189 <200 mg/dL [facility] Comment:Desirable Cholestero l: less than 200 mg/dLBorderline High Cholesterol: 200-239 mg/dLHigh Cholesterol: greater than 239 mg/dL LDL Cholesterol Calculated 114(H) <100 mg/dL [facility] Comment:Desirable LDL: less than 100 mg/dLNear Optimal/Above Optimal LDL: 110- 129 mg/dLBorderline High LDL: 130-159 mg/dLHigh LDL: 160-189 mg/dLVery High LDL: greater than or equal to 190 mg/dL HDL Cholesterol 45 >40 mg/dL [facility] Comment:Desirable HDL: great er than 40 mg/dL Note: This HDL assay may give artificially low results in patients with liver disease. Blood 05/01/2024 8:50 AM EDT 05/01/2024 12:02 PM EDT Alka Caraballo MD LAB BLOOD ORDERABLES Final Resul t [facility] [address] [place] [address] [phone] * Colonoscopy (06/02/2019) Colonoscopy peform us Historical Provider HEALTH MAINTENANCE Edited Result - Final from Last 3 Months or Most Recently Relevant to Health Maintenance Insurance MEDICARE DENTAL - HSN FULL (MEDICAID) Care Teams Outdoor Emergency Care Technician Relationship Specialty Start Date End Date Alka Caraballo MD [address] [place] [address] PCP - General Family Medicine 12/11/13 Iban Greenberg, RebekahD [address] [place] [address] Pharmacist Pharmacy 04/06/25
--- OUTSIDE RECORDS SUMMARY | 2025-04-29 09:09 | XMS_ITS | Encounter Summary ---
Author Organization [employer] [facility] Address [address] [place] [address] 7 [place] [address] Care Team Providers Care Demolition Expert Name Role Phone Alka Caraballo MD Primary Care Provider [phone] Iban Greenberg PharmD Unavailable [phone] Encounter Details Date Type Department Care Team (Latest Contact Info) Description 02/19/2022 Abstract [facility] CONVERSIONS Dental, Provider, DDS Social [...] 9:00 AM EST Medication Management [facility] MEDICINE [address] [place] [address] Iban Greenberg PharmD [address] [place] [address] documented as of this encounter Visit Diagnoses Not on filedocumented in this encounter Care Teams Demolition Expert Relationship Specialty Start Date End Date Alka Caraballo MD [address] [place] [address] PCP - General Family Medicine 12/11/13 Iban Greenberg PharmD [address] [place] [address] Pharmacist Pharmacy 04/06/25 documented as of this encounter
--- OUTSIDE RECORDS SUMMARY | 2025-04-29 09:09 | XMS_ITS | Patient Health Record ---
Author Organization [facility] Address [address] [place] [address] Care Team Providers Care Mold Operator Name Role Phone Rashmi HERNANDEZ, Alka Primary Care Provider Marty Hummel Unavailable [phone] Reason For Referral No Information Medications Medication SIG (Take, Route, Frequency, Duration) Notes Start Date End Date Status Clarithromycin 500 MG 1 tablet Orally ev jodee 12 hrs; Duration: 14 days 06/17/2019 Active Omeprazole 20 MG 1 tablet Orally Twic e a day; Duration: 14 days 06/17/2019 Active Zoloft 100 MG 1 tablet Orally Once a day; Duration: 30 day(s) Active Acetaminophen ER 650 MG 2 tablets as nee ded Orally every 8 hrs/prn Active MiraLax (colon prep) 8.3 ounce ((238) grams mixed with Gatorade or Crystal Light orally begin at 5:00 p.m. the day before the procedure; Duration: 1 day 05/27/2019 Active Naproxen 500 MG 1 tablet Orally Twic e a day; Duration: 30 day(s) Active Amoxicillin 500 MG 2 tablets Orally yelena ry 12 hrs; Duration: 14 days 06/17/2019 Active Social History Tobacco Use: Social History Observation Description Date Details (start date - stop date) Never Smoker NA - NA Tobacco Use/Smoking Question Answer Notes Patient is a nonsmoker Alcohol Screen Question Answer Notes Did you have a drink contain ing alcohol in the past year? Yes How often did you have a dri nk containing alcohol in the past year? 2 to 4 times a month (2 points) How many drinks did you have on a typical day when you were drinking in the past year? 1 or 2 drinks (0 point) How often did you have 6 or more drinks on one occasion in the past year? Never (0 point) Points 2 Interpretation Negative Problems Problem Type SNOMED Code ICD Code Onset Dates Problem Status W/U Status Risk Notes Problem Essential hypertension (40184978) Hypertension, unspecified type (I10) Active confirmed Problem Left sided abdominal pain (789484245) Left sided abdominal pain (R10.9) Active confirmed Plan Of Treatment Future Test Test Name Order Date UPPER GI ENDOSCOPY 05/27/2019 COLONOSCOPY 05/27/2019 Insurance Providers Payer Name Payer Address Payer Phone Subscriber Number Group Number Insured Name Patient Relationship to Insured Coverage Start Date Coverage End Date MEDICARE OF [place] [address] [employer] [id number] JOVAN HARMAN Self - patient is the insured Medical (General) History Medical History History ICD Code back pain hypertension depression elevated BMI Surgical History Surgery Date(Month/Year) left foot left shoulder lower back
--- OUTSIDE RECORDS SUMMARY | 2025-04-29 09:09 | XMS_ITS | Encounter Summary ---
Author Organization [employer] Address [address] [place] [address] 7t [place] [address] Care Team Providers Care Rehab Director Name Role Phone Alka Caraballo MD Primary Care Provider [phone] Iban Greenberg PharmD Unavailable [phone] Encounter Details Date Type Department Care Team (Latest Contact Info) Description 10/21/2020 Abstract [facility] CONVERSIONS Dental, Provider, DDS Social History [...] Description 07/02/2025 9:00 AM EST Medication Management [facility] MEDICINE [address] [place] [address] Iban Greenberg PharmD [address] [place] [address] documented as of this encounter Visit Diagnoses Not on filedocumented in this encounter Care Teams Rehab Director Relationship Specialty Start Date End Date Alka Caraballo MD [address] [place] [address] PCP - General Family Medicine 12/11/13 Iban Greenberg PharmD [address] [place] [address] Pharmacist Pharmacy 04/06/25 documented as of this encounter
[2025-04-29 12:11] LABS: Alanine Aminotransferase 18 U/L (0-40); Albumin Level 4.4 g/dL (3.5-5.0); Alkaline Phosphatase 63 U/L (39-117); Anion Gap 12 (12-20); Aspartate Amino Transferase 30 U/L (5-37); Blood Urea Nitrogen 21 mg/dL (9-16); Calcium 8.8 mg/dL (8.4-10.2); Carbon Dioxide 27 mmol/L (22-29); Chloride 106 mmol/L (96-108); Cholesterol 205 mg/dL (<200); Estimated Glomerular Filt Rate > 60; HDL Cholesterol 46 mg/dL (>40); Potassium 3.9 mmol/L (3.3-5.1); Sodium 141 mmol/L (135-145); Total Protein 6.9 g/dL (6.5-8.0); Triglycerides 174 mg/dL (<150)
[2025-04-29 12:14] LABS: Reflex LDLD? No
== END 2025-04-29 08:38 | disposition home or self-care (01) ==
LOC: HO.HHCL 08:37
PROVIDERS: PCP Family Medicine; Visit Provider Family Medicine
DX: Z13.1 Encounter for screening for diabetes mellitus (principal); I10 Essential (primary) hypertension
CPT/HCPCS: 36415; 80053; 80061; 83036